=== PATIENT | male | born 1965 | race Caucasian/White ===

== ENCOUNTER → 2016-08-07 | Outpatient (CLI) | payer BC ==
[2016-08-07 12:45] LABS: Blood Urea Nitrogen 13 mg/dL (9-20); Non-African American GFR(MDRD) >60 (>60 ml/min/1.73 sqM)
--- NOTE | 2016-08-07 13:42 | CT ---
EXAMINATION TYPE: CT ChestAbdPelvis w con DATE OF EXAM: 08/07/2016 1:22 PM COMPARISON: CT chest June 22, 2016. PET/CT April 04, 2016 HISTORY: Lung CA after chemotherapy treatment progress study. CT DLP: 1398 mGycm. Automated Exposure Control for Dose Reduction was Utilized. CONTRAST: CT scan of the thorax, abdomen and pelvis is performed with oral and with IV Contrast, patient inject ed with 100 ml mL of Omnipaque 300. FINDINGS: LUNGS: There is background of mild to moderate emphysematous change redemonstrated. Masslike neoplasm left hilar level with hilar invasion remains present. This is difficult to accurately measure due to location, left hilar component measuring 2.6 x 2.0 cm is noted on image 32 felt that change from mos t recent CT image 37 but improved from initial PET/CT. There is increasing ill-defined infiltrate in the left lower lobe with mild bronchiectatic change could reflect posttreatment change, infectious pr ocess cannot be excluded. Additional area of ill-defined focal infiltrate medial inferiorly left uppe r lobe on axial image 29 is noted with similar differential. No new nodule or mass is seen. Previousl y visualized 5 mm right middle lobe nodule is not clearly identified on today's study. MEDIASTINUM: There are persistent prominent but subcentimeter thoracic lymph nodes felt stable. For reference right paratracheal lymph node measures 1.1 x 0.6 cm on image 22 and is felt stable. Subcen timeter paratracheal lymph node superior to this on axial image 17 is slightly more prominent but rem ain subcentimeter in size. No cardiomegaly or pericardial effusion is seen. OTHER: There are prominent but subcentimeter bilateral axillary lymph nodes incidentally noted. LIVER/GB: No significant abnormality is appreciated. PANCREAS: No significant abnormality is seen. SPLEEN: No significant abnormality is seen. ADRENALS: There is redemonstration of bilateral adrenal metastatic lesions, right adrenal mass measur es 3.4 x 1.8 cm on axial image 55. Left adrenal mass measures 2.3 x 2.1 cm on axial image 59. Lesions are diminished in size from prior exams. KIDNEYS: A few low dense lesions scattered throughout both kidneys consistent with simple cysts are n oted. BOWEL: There is mild to moderate wall thickening at level of sigmoid colon. Colitis at this level can not be entirely excluded. Clinical correlation advised. Finding also could be product of for distenti on. Oral contrast reaches level of rectum. No suspicious small or large bowel dilatation is present. GENITAL ORGANS: Prostate gland is heterogeneous in appearance and slightly enlarged in size, underlyi ng BPH is suspected. Clinical correlation advised. LYMPH NODES: No greater than 1cm abdominal or pelvic lymph nodes are appreciated. OSSEOUS STRUCTURES: Multilevel spurring and spine is redemonstrated. There is stable nonspecific scle rotic focus superior T11 vertebra. Favor benign etiology. OTHER: Small fat-containing left inguinal hernia. There is mild to moderate atherotic change of aorta and branch vessels. IMPRESSION: Left hilar neoplasm felt stable from most recent CT. Improved from initial PET/CT. Bilate ral adrenal metastatic lesions improved from both studies. No new metastatic lesions or adenopathy id entified.
== END | disposition home or self-care (01) ==
LOC: RADCTMAIN 12:02
PROVIDERS: ATTEND Internal Medicine Hematology & Oncology
DX: C34.90 Malignant neoplasm of unspecified part of unspecified bronchus or lung (principal)
CPT/HCPCS: 82565; 84520; 71260; 74177; 36415; Q9967

== ENCOUNTER → 2017-02-16 | Outpatient (CLI) | payer BC ==
[2017-02-16 13:23] LABS: Blood Urea Nitrogen 15 mg/dL (9-20); Non-African American GFR(MDRD) >60 (>60 ml/min/1.73 sqM)
--- NOTE | 2017-02-16 15:00 | CT ---
EXAMINATION TYPE: CT ChestAbdPelvis w con DATE OF EXAM: 02/16/2017 COMPARISON: 11/06/16 HISTORY: Patient complains of history of lung ca. Patient has no complaints at time of study. CT DLP: 729.1 mGycm CONTRAST: CT scan of the chest, abdomen and pelvis is performed with Oral Contrast and with IV Contrast, patien t injected with 100 mL of Omnipaque 300. CT Chest: LUNGS: Resolution of left-sided pleural effusion since prior examination. Left perihilar mass is not clearly visible. There is patchy opacity about the left hilum as well as bronchial wall thickening wi thout discernible mass. MEDIASTINUM: Thoracic aorta is of normal caliber. The heart is not enlarged. AP window lymph node m easuring 9 mm. Right paratracheal lymph nodes less than 1 cm. Tracheoesophageal lymph node measuring 9 mm. Resolution pericardial effusion. HILAR STRUCTURES: No evidence for mass. There is left hilar adenopathy measuring 1.3 cm in right christelle r adenopathy measuring 1.2 cm. OTHER: No significant abnormality. CONTRAST CT ABDOMEN AND PELVIS FINDINGS: LIVER/GB: No calcified gallstones. There is mild hepatic steatosis identified. No space occupying h epatic lesion. Biliary tree is of normal caliber. PANCREAS: No inflammation. No distinct mass. SPLEEN: No splenic enlargement. No lesion seen. ADRENALS: Bilateral adrenal masses persist. Right adrenal mass is larger in size and measures 5 x 3.3 cm versus 3.7 x 2.8 cm. Left adrenal mass appears smaller in size and measures 2.3 x 1.7 cm versus 3 .4 x 2.6 cm previously. KIDNEYS/BLADDER: No hydronephrosis. No nephrolithiasis. No disctinct renal mass. Urinary bladder wall thickening may be related to poor distention. BOWEL: Normal appendix. Normal bowel caliber. No inflammation. GENITAL ORGANS: No gross abnormality. LYMPH NODES: No greater than 1cm abdominal or pelvic lymph nodes are appreciated. AORTA: No significant abnormality. OSSEOUS STRUCTURES: No significant abnormality is seen. OTHER: No significant additional abnormality is seen. IMPRESSION: 1. Left hilar soft tissue persists and currently measures 1.3 cm versus 1.9 x 2.3 cm previously. This may reflect diminution in size of left hilar lesion or decreasing adenopathy. 2. Resolution of masslike consolidation left mid lung zone and resolution of left-sided pleural effus ion. As noted there is patchy opacity and bronchial wall thickening about the left hilar region. 3. Mediastinal and right hilar lymph nodes as discussed. 4. Bilateral adrenal masses suspicious for metastatic disease. 5. Hepatic steatosis.
== END | disposition home or self-care (01) ==
LOC: RADCTMAIN 12:38
PROVIDERS: ATTEND Internal Medicine Hematology & Oncology
DX: J18.1 Lobar pneumonia, unspecified organism (principal); J98.4 Other disorders of lung; J90 Pleural effusion, not elsewhere classified; C34.32 Malignant neoplasm of lower lobe, left bronchus or lung; E27.8 Other specified disorders of adrenal gland; K76.0 Fatty (change of) liver, not elsewhere classified; R59.0 Localized enlarged lymph nodes
CPT/HCPCS: 82565; 84520; 71260; 74177; 36415; Q9967

== ENCOUNTER → 2017-05-11 | Outpatient (CLI) | payer BC ==
[2017-05-11 08:41] LABS: Blood Urea Nitrogen 13 mg/dL (9-20); Non-African American GFR(MDRD) >60 (>60 ml/min/1.73 sqM)
--- NOTE | 2017-05-11 10:37 | CT ---
EXAMINATION TYPE: CT ChestAbdPelvis w con DATE OF EXAM: 05/11/2017 COMPARISON: February 16, 2017 HISTORY: Follow up to lung CA with mets CT DLP: 1655 mGycm CONTRAST: CT scan of the chest, abdomen and pelvis is performed with Oral Contrast and with IV Contrast, patien t injected with 100 mL of Omnipaque 300. CT Chest: LUNGS: There is persistent left infrahilar left lower lobe patchy density without discernible mass wh ich may reflect post radiation therapy change. Right upper lobe pulmonary nodule measures 5.6 mm vers us 5.6 mm previously. No additional nodules identified. No evidence for pulmonary mass. MEDIASTINUM: Thoracic aorta is of normal caliber. The heart is not enlarged. No evidence for media stinal mass or adenopathy greater than 1 cm. HILAR STRUCTURES: No change in left hilar soft tissue measuring approximately 1.3 cm. Right hilar franco nopathy measures 1 cm. OTHER: No significant abnormality. CONTRAST CT ABDOMEN AND PELVIS FINDINGS: LIVER/GB: No calcified gallstones. Mild hepatic steatosis. No space occupying hepatic lesion. Bilia ry tree is of normal caliber. PANCREAS: No inflammation. No distinct mass. SPLEEN: No splenic enlargement. No lesion seen. ADRENALS: Enlarging necrotic mass right adrenal gland currently measures 6.3 x 5.9 cm versus 5.0 x 3. 3 cm previously. There is mass effect upon the inferior vena cava and early invasion into the inferio r vena cava is difficult to exclude given loss of fat plane. There are several adjacent lymph nodes m easuring up to 7.5 mm in short axis. Nodularity left adrenal gland is stable. Invasion into the upper pole of the right kidney is also difficult to exclude. KIDNEYS/BLADDER: No hydronephrosis. No nephrolithiasis. I cannot exclude invasion of the large righ t adrenal mass into the upper pole of the right kidney. Simple cyst midpole right kidney. Left kidney is unremarkable. No hydronephrosis or nephrolithiasis at this time. BOWEL: Normal appendix. Normal bowel caliber. No inflammation. GENITAL ORGANS: No gross abnormality. LYMPH NODES: No greater than 1cm abdominal or pelvic lymph nodes are appreciated. AORTA: No significant abnormality. OSSEOUS STRUCTURES: No significant abnormality is seen. OTHER: No significant additional abnormality is seen. IMPRESSION: 1. Enlarging right adrenal mass felt to reflect metastatic disease. As noted there are adjacent enlar ging lymph nodes as well as loss of fat plane with regards to the upper pole of the right kidney and adjacent inferior vena cava. 2. Persistent and stable nodularity left adrenal gland. 3. Soft tissue within the left hilar region is stable. There is also stable left lower lobe strandy a nd patchy opacity which may reflect post radiation therapy changes. 4 stable right upper lobe pulmona ry nodule.
== END | disposition home or self-care (01) ==
LOC: RADCTMAIN 08:07
PROVIDERS: ATTEND Internal Medicine Hematology & Oncology
DX: R91.1 Solitary pulmonary nodule (principal); C79.71 Secondary malignant neoplasm of right adrenal gland; R59.0 Localized enlarged lymph nodes; C34.32 Malignant neoplasm of lower lobe, left bronchus or lung
CPT/HCPCS: 82565; 84520; 71260; 74177; 36415; Q9967

== ENCOUNTER → 2017-09-10 | Outpatient (CLI) | payer BC ==
[2017-09-10 12:13] LABS: Blood Urea Nitrogen 9 mg/dL (9-20)
--- NOTE | 2017-09-10 13:55 | CT ---
EXAMINATION TYPE: CT ChestAbdPelvis w con DATE OF EXAM: 09/10/2017 INDICATION: Lung cancer COMPARISON: 07/06/2017 CT DLP: 759.5 mGycm CONTRAST: Performed with Oral Contrast and with IV Contrast, patient injected with 100 mL of Omnipaque 300. TECHNIQUE: Axial images at 5 mm thick sections. Reconstructed images in the coronal plane. Delayed images through the kidneys. FINDINGS: CT CHEST: Portion of the thyroid visualized is normal. There is a right infrahilar consolidation with some air bronchograms. Infiltrate or mass could be con sidered. Findings may have worsened from prior. A small left pleural effusion is increased. There is a 1.6 cm right suprahilar lymph node. Some soft tissue densities in the left hilar region. N ote is made of coronary artery calcification. Minimal bilateral pleural effusions are present, increa sed on left. Minimal pericardial effusion is present. The ascending aorta diameter at the level of the main pulmonary artery is 3.4 cm. The main pulmonary artery diameter at the bifurcation is 2.[address] ABDOMEN: Liver: Normal Spleen: Normal Pancreas: Somewhat atrophic. Adrenal glands: Right adrenal gland is large measuring 3.8 cm transverse dimension. Gallbladder: Normal Kidneys: No masses are evident. No hydronephrosis is present. Small cortical renal cyst may be pres ent. These are not smooth margined into small to measure for confirmation simple cysts. Delayed imag es were obtained through the kidneys, which remain unremarkable. Aorta: Vascular calcification is within the aorta. Inferior vena cava: Normal. CT PELVIS: Loops of bowel within the abdomen and pelvis are normal. There are loops of bowel which are incom pletely distended or lack oral contrast limiting their evaluation. Appendix: Normal as visualized. Urinary bladder: Normal. Genitourinary structures: Prostate is mild prominence Osseous structures: No suspicious lytic or sclerotic lesions. IMPRESSIONS: 1. Increasing soft tissue densities extending to the left infrahilar region which are nonspecific. Po st radiation changes and pneumonia are within the differential. This appears increased from compariso n recurrent neoplasm should be considered. 2. Enlarged right adrenal gland which is diminished in size from comparison. 3. Small left pleural effusion some minimal right pleural effusion is present. 4. Enlarged right hilar lymph node.
== END | disposition home or self-care (01) ==
LOC: RADCTMAIN 11:31
PROVIDERS: ATTEND Internal Medicine Hematology & Oncology
DX: C34.32 Malignant neoplasm of lower lobe, left bronchus or lung (principal); J98.4 Other disorders of lung; J90 Pleural effusion, not elsewhere classified; E27.8 Other specified disorders of adrenal gland
CPT/HCPCS: 82565; 84520; 71260; 74177; 36415; Q9967

== ENCOUNTER → 2017-11-22 | Outpatient (CLI) | payer BC ==
[2017-11-22 16:38] LABS: Blood Urea Nitrogen 12 mg/dL (9-20)
--- NOTE | 2017-11-23 08:30 | CT ---
EXAMINATION TYPE: CT ChestAbdPelvis w con DATE OF EXAM: 11/22/2017 COMPARISON: CT chest abdomen and pelvis from September 10, 2017 and older studies. PET CT April 04, 2016. HISTORY: Lung cancer progress study last chemotherapy 7 -8 weeks ago per patient CT DLP: 1474 mGycm. Automated Exposure Control for Dose Reduction was Utilized. CONTRAST: CT scan of the thorax, abdomen and pelvis is performed with oral and with IV Contrast, patient inject ed with 100 mL of Isovue 300. FINDINGS: LUNGS: Background mild to moderate underlying emphysematous change is redemonstrated. There is interv al near-complete resolution of small to tiny right pleural effusion. There is interval resolution of small left pleural effusion. There is persistent left infrahilar consolidation with mild bronchiectat ic change on axial image 34 not significantly changed from prior study image 37 which is at site of o riginal neoplasm. Some irregular linear scarring and/or less likely atelectasis extends superior, lat eral, anterior, and posterior to this level. Slightly more thicker component posterior superior media l aspect axial image 30 is stable. No new suspicious nodules or masses are identified. No pneumothora x is seen bilaterally. Right lung is grossly clear. MEDIASTINUM: Abnormal soft tissue left hilar region axial image 30 encasing arterial branching vessel s which are slightly narrowed is unchanged from most recent study. There is stable right paratracheal lymph node measuring 1.2 x 0.8 cm axial image 22 this is nonspecific and slightly more prominent in size from original PET/CT. There is stable right hilar node measuring 1.5 x 1.1 cm axial image 27 thi s has been stable from original PET/CT where there was not for metabolic uptake. No pericardial effusion is seen. There is moderate to severe 3 vessel coronary artery calcification, note is made the proximal LAD near axial image 34 and coronal image 32 shows additional noncalcified plaque, I suspect a significant focal stenosis. I would consider further investigation with CTA shelbi nary study or direct catheter angiogram, this was likely in the radiation treatment port. OTHER: No additional significant abnormality is seen. LIVER/GB: Somewhat contracted gallbladder on current study is seen. PANCREAS: No significant abnormality is seen. SPLEEN: No significant abnormality is seen. ADRENALS: There is persistent heterogeneous right adrenal mass measuring 4.3 x 3.2 cm axial image 58 not significantly changed in size from most recent CT. Irregular hyperdense anterior aspect remains p resent slightly more prominent versus most recent CT. This is enlarged from original PET/CT. Slight nodular thickening to left adrenal gland is redemonstrated on axial image 58 not significantl y changed in size from recent CT perhaps slightly hyperdense. This is improved in size from original PET/CT. KIDNEYS: There are scattered simple appearing cysts throughout both kidneys redemonstrated. BOWEL: Oral contrast reaches level of the rectum. There is new mild to moderate wall thickening in th e sigmoid colon. Some diverticula are seen in the left and most prominent in the sigmoid colon. Mariela l contrast-filled appendix is seen from cecum. There is no suspicious small or large bowel dilatation . GENITAL ORGANS: Heterogeneous prostate gland remains mildly enlarged suggestive of BPH. LYMPH NODES: No greater than 1cm abdominal or pelvic lymph nodes are appreciated. OSSEOUS STRUCTURES: There is fairly moderate multilevel spurring in the spine. OTHER: There is mild to moderate calcified plaque of aorta extending into branch vessels IMPRESSION: 1. Overall stable findings left hilar region likely reflecting treated neoplasm. Stable bilateral adr enal metastatic lesions from most recent CT. Improved bilateral pleural effusions. No new suspicious masses or adenopathy noted. 2. Severe 3 vessel coronary artery calcification, good visualization of proximal LAD suspicious for s ignificant stenosis due to noncalcified plaque, advise follow-up coronary CTA or direct catheter carmelo ogram.
== END ==
LOC: RADCTMAIN 14:37
PROVIDERS: ATTEND Internal Medicine Hematology & Oncology
DX: Z03.89 Encounter for observation for other suspected diseases and conditions ruled out (principal); C79.71 Secondary malignant neoplasm of right adrenal gland; C79.72 Secondary malignant neoplasm of left adrenal gland; J90 Pleural effusion, not elsewhere classified; I25.10 Atherosclerotic heart disease of native coronary artery without angina pectoris
CPT/HCPCS: 82565; 84520; 71260; 74177; 36415; Q9967

== ENCOUNTER 2018-01-21 13:18 | Inpatient (IN) | payer BC, MEDICARE ==
[2018-01-21] MEDS ORDERED: SODIUM CHLORIDE 0.9% 1,000 ML IV ONE (14:47)
[2018-01-21] MEDS ORDERED: ASPIRIN 325 MG TAB PO STA (14:47)
[2018-01-21 15:13] LABS: ALT 15 U/L (21-72); AST 37 U/L (17-59); Albumin 4.7 g/dL (3.5-5.0); Alkaline Phosphatase 88 U/L (38-126); Anion Gap 17 mmol/L; Blood Urea Nitrogen 14 mg/dL (9-20); Calcium 9.8 mg/dL (8.4-10.2); Carbon Dioxide 18 mmol/L (22-30); Chloride 91 mmol/L (98-107); Glucose 69 mg/dL (74-99); Lipase 50 U/L (23-300); Sodium 126 mmol/L (137-145); Total Bilirubin 1.5 mg/dL (0.2-1.3); Total Protein 7.1 g/dL (6.3-8.2)
[2018-01-21 15:16] LABS: INR 1.2 (<1.2); Prothrombin Time 11.1 sec (9.0-12.0)
[2018-01-21 15:17] LABS: Partial Thromboplastin Time 32.3 sec (22.0-30.0)
[2018-01-21 15:24] LABS: Basophils % (A) 1 %; Eosinophils # (A) 0.4 k/uL (0-0.7); Eosinophils % (A) 8 %; HCT 39.1 % (39.0-53.0); Lymphocytes # (A) 0.7 k/uL (1.0-4.8); Lymphocytes % (A) 16 %; MCH 30.6 pg (25.0-35.0); MCHC 35.9 g/dL (31.0-37.0); MCV 85.4 fL (80.0-100.0); Mean Platelet Volume 6.8; Monocytes # (A) 0.4 k/uL (0-1.0); Monocytes % (A) 9 %; Neutrophils # (A) 2.9 k/uL (1.3-7.7); Neutrophils % (A) 64 %; Platelet Count 126 k/uL (150-450); RBC 4.58 m/uL (4.30-5.90); RDW 13.7 % (11.5-15.5); WBC 4.4 k/uL (3.8-10.6)
--- NOTE | 2018-01-21 15:35 | XR ---
EXAMINATION TYPE: XR chest 2V DATE OF EXAM: 01/21/2018 COMPARISON: CT chest abdomen and pelvis November 22, 2017 HISTORY: History of lung cancer with weakness, hyperthyroidism TECHNIQUE: Frontal and lateral views of the chest are obtained. FINDINGS: There is persistent left hilar scarring. There is no suspicious focal airspace opacity, pl eural effusion, or pneumothorax. Background mild underlying emphysematous changes redemonstrated. The cardiac silhouette size is within normal limits. The osseous structures are intact. IMPRESSION: Chronic changes without acute pulmonary process. No significant change from recent CT.
[2018-01-21 15:45] LABS: Potassium 5.4 mmol/L (3.5-5.1)
[2018-01-21 16:22] LABS: T4, Free (Free Thyroxine) 1.67 ng/dL (0.78-2.19)
--- NOTE | 2018-01-21 16:49 | ED ---
General Adult HPI - General Chief complaint: Recheck/Abnormal Lab/Rx Stated complaint: Abd normal labs-lung ca/sent by Dr Pino Time Seen by Provider: 01/21/18 14:05 Source: patient, family Mode of arrival: wheelchair Limitations: no limitations - History of Present Illness Initial comments: 52-year-old male with past medical history of small cell lung cancer and kidney cancer, diabetes, hypertension, and hypothyroidism on Synthroid presented for evaluation of confusion and hallucinations. His states that he is having symptoms for the last 5 days and a progressively been worsening. The confusion has just been generalized however at night he has been getting up out of bed stating that he sees lines in the yard and goes out to him. He is also gone outside to socialize with friends that are not present. Symptoms are worse at night and gradually improve around noon during the day. Patient also states that he's been having intermittent whole body spasms which she has never had before. No recent changes in medications, no recent illnesses, however a few days prior to symptom onset patient had discontinued a supplemental THC. Pt had routine lab work a week ago which showed elevated TSH, which they were informed of today and advised to come to the ED. - Related Data Home Medications Medication Instructions Recorded Confirmed Sertraline [Zoloft] 50 mg PO DAILY 04/07/16 01/21/18 Diazepam [Valium] 5 mg PO DAILY 04/08/16 01/21/18 Levothyroxine Sodium [Synthroid] 125 mcg PO DAILY 01/21/18 01/21/18 Allergies Allergy/AdvReac Type Severity Reaction Status Date / Time No Known Allergies Allergy Verified 01/21/18 14:06 Review of Systems ROS Statement: Those systems with pertinent positive or pertinent negative responses have been documented in the HPI. ROS Other: All systems not noted in ROS Statement are negative. Constitutional: Denies: fever, chills, weakness, weight change, night sweats Eyes: Denies: eye pain, vision change ENT: Denies: ear pain, throat pain Respiratory: Denies: cough, dyspnea Cardiovascular: Denies: chest pain, palpitations Endocrine: Reports: fatigue. Denies: polydipsia, polyuria Gastrointestinal: Denies: abdominal pain, nausea, vomiting Genitourinary: Denies: urgency, dysuria Musculoskeletal: Denies: back pain, arthralgia, myalgia Skin: Denies: rash, lesions Neurological: Reports: confusion, other (hallucinations). Denies: headache Psychiatric: Denies: anxiety, depression Hematological/Lymphatic: Denies: easy bleeding, easy bruising Past Medical History Past Medical History: Cancer, Diabetes Mellitus, Hypertension Additional Past Medical History / Comment(s): COUGH WITH BLOOD, lung cancer stage 4-non small cell carcinoma History of Any Multi-Drug Resistant Organisms: ESBL Date of last positivie culture/infection: 05/31/17 MDRO Source:: ESBL URINE Past Surgical History: Back Surgery Additional Past Surgical History / Comment(s): CERVICAL DISC "REMOVED" jul-2015 , HEMMORIODECTOMY, lung biopsy Past Anesthesia/Blood Transfusion Reactions: No Reported Reaction Past Psychological History: Depression Smoking Status: Current every day smoker Past Alcohol Use History: Occasional Past Drug Use History: Marijuana - Past Family History Mother Family Medical History: Myocardial Infarction ([place]) Father Family Medical History: CVA/TIA General Exam Limitations: no limitations General appearance: alert, in no apparent distress Head exam: Present: atraumatic, normocephalic Eye exam: Present: normal appearance, PERRL, EOMI. Absent: scleral icterus, conjunctival injection ENT exam: Present: normal exam, normal oropharynx Neck exam: Present: normal inspection, full ROM. Absent: tenderness, meningismus Respiratory exam: Present: normal lung sounds bilaterally. Absent: respiratory distress, wheezes, rales Cardiovascular Exam: Present: regular rate, normal rhythm GI/Abdominal exam: Present: soft. Absent: distended, tenderness, guarding, rebound, rigid Rectal exam: Present: deferred Extremities exam: Present: normal inspection, full ROM Back exam: Present: normal inspection, full ROM Neurological exam: Present: alert, oriented X3, other (intermittent, singular spasms that resolve and do not affect mental status) Psychiatric exam: Present: normal affect, normal mood Skin exam: Present: warm, dry, intact Course Vital Signs 01/21/18 01/21/18 13:32 16:37 Temperature 98.4 F Pulse Rate 95 97 Respiratory 20 18 Rate Blood Pressure 106/71 129/80 O2 Sat by Pulse 100 98 Oximetry EKG Findings - EKG Comments: EKG Findings:: Normal sinus rhythm with incomplete right bundle branch block and a ventricular rate of 77 Medical Decision Making - Medical Decision Making 52-year-old male with past medical history as noted above presented for evaluation of hallucinations, confusion, and elevated TSH per his oncologist Dr. Babb. On physical examination the patient does have intermittent spasms are singular and do not affect the mental status. CN 2-12 intact without focal neuro deficit. Normal gait and station. Remainder of exam benign. Labs revealed hyponatremia and hyperkalemia the patient will be given IV fluids and Kayexalate. Although TSH is elevated at 14.5 the free T4 is within normal limits. At this time concern for altered mental state and hallucination is not likely attributable to a thyroid etiology and concern for brain metastasis is considered. We'll obtain CT head and plan for admission. Discussed with Dr. Espinoza (hem/onc) who requested patient be admitted to medicine. Discussed with Dr. Page who accepted the admission with request for consult with Dr. Babb. Admission order placed and bed request submitted. Will continue to follow CT head through admission. - Lab Data Result diagrams: 01/21/18 14:07 01/21/18 14:07 Lab Results 01/21/18 01/21/18 01/21/18 Range/Units 14:07 14:07 14:07 WBC 4.4 (3.8-10.6) k/uL RBC 4.58 (4.30-5.90) m/uL Hgb 14.0 (13.0-17.5) gm/dL Hct 39.1 (39.0-53.0) % MCV 85.4 (80.0-100.0) fL MCH 30.6 (25.0-35.0) pg MCHC 35.9 (31.0-37.0) g/dL RDW 13.7 (11.5-15.5) % Plt Count 126 L (150-450) k/uL Neutrophils % 64 % Lymphocytes % 16 % Monocytes % 9 % Eosinophils % 8 % Basophils % 1 % Neutrophils # 2.9 (1.3-7.7) k/uL Lymphocytes # 0.7 L (1.0-4.8) k/uL Monocytes # 0.4 (0-1.0) k/uL Eosinophils # 0.4 (0-0.7) k/uL Basophils # 0.0 (0-0.2) k/uL PT (9.0-12.0) sec INR (<1.2) APTT (22.0-30.0) sec Sodium 126 L (137-145) mmol/L Potassium 5.4 H (3.5-5.1) mmol/L Chloride 91 L (98-107) mmol/L Carbon Dioxide 18 L (22-30) mmol/L Anion Gap 17 mmol/L BUN 14 (9-20) mg/dL Creatinine 0.60 L (0.66-1.25) mg/dL Est GFR (CKD-EPI)AfAm >90 (>60 ml/min/1.73 sqM) Est GFR (CKD-EPI)NonAf >90 (>60 ml/min/1.73 sqM) Glucose 69 L (74-99) mg/dL Plasma Lactic Acid Balbir 1.1 (0.7-2.0) mmol/L Calcium 9.8 (8.4-10.2) mg/dL Total Bilirubin 1.5 H (0.2-1.3) mg/dL AST 37 (17-59) U/L ALT 15 L (21-72) U/L Alkaline Phosphatase 88 (38-126) U/L Troponin I (0.000-0.034) ng/mL NT-Pro-B Natriuret Pep pg/mL Total Protein 7.1 (6.3-8.2) g/dL Albumin 4.7 (3.5-5.0) g/dL Lipase 50 (23-300) U/L TSH 14.500 H (0.465-4.680) mIU/L Free T4 1.67 (0.78-2.19) ng/dL Urine Color Urine Appearance (Clear) Urine pH (5.0-8.0) Ur Specific [place] (1.001-1.035) Urine Protein (Negative) Urine Glucose (UA) (Negative) Urine Ketones (Negative) Urine Blood (Negative) Urine Nitrite (Negative) Urine Bilirubin (Negative) Urine Urobilinogen (<2.0) mg/dL Ur Leukocyte Esterase (Negative) 01/21/18 01/21/18 01/21/18 Range/Units 14:07 14:07 14:07 WBC (3.8-10.6) k/uL RBC (4.30-5.90) m/uL Hgb (13.0-17.5) gm/dL Hct (39.0-53.0) % MCV (80.0-100.0) fL MCH (25.0-35.0) pg MCHC (31.0-37.0) g/dL RDW (11.5-15.5) % Plt Count (150-450) k/uL Neutrophils % % Lymphocytes % % Monocytes % % Eosinophils % % Basophils % % Neutrophils # (1.3-7.7) k/uL Lymphocytes # (1.0-4.8) k/uL Monocytes # (0-1.0) k/uL Eosinophils # (0-0.7) k/uL Basophils # (0-0.2) k/uL PT 11.1 (9.0-12.0) sec INR 1.2 H (<1.2) APTT 32.3 H (22.0-30.0) sec Sodium (137-145) mmol/L Potassium (3.5-5.1) mmol/L Chloride (98-107) mmol/L Carbon Dioxide (22-30) mmol/L Anion Gap mmol/L BUN (9-20) mg/dL Creatinine (0.66-1.25) mg/dL Est GFR (CKD-EPI)AfAm (>60 ml/min/1.73 sqM) Est GFR (CKD-EPI)NonAf (>60 ml/min/1.73 sqM) Glucose (74-99) mg/dL Plasma Lactic Acid Balbir (0.7-2.0) mmol/L Calcium (8.4-10.2) mg/dL Total Bilirubin (0.2-1.3) mg/dL AST (17-59) U/L ALT (21-72) U/L Alkaline Phosphatase (38-126) U/L Troponin I <0.012 (0.000-0.034) ng/mL NT-Pro-B Natriuret Pep 196 pg/mL Total Protein (6.3-8.2) g/dL Albumin (3.5-5.0) g/dL Lipase (23-300) U/L TSH (0.465-4.680) mIU/L Free T4 (0.78-2.19) ng/dL Urine Color Urine Appearance (Clear) Urine pH (5.0-8.0) Ur Specific [place] (1.001-1.035) Urine Protein (Negative) Urine Glucose (UA) (Negative) Urine Ketones (Negative) Urine Blood (Negative) Urine Nitrite (Negative) Urine Bilirubin (Negative) Urine Urobilinogen (<2.0) mg/dL Ur Leukocyte Esterase (Negative) 01/21/18 Range/Units 16:44 WBC (3.8-10.6) k/uL RBC (4.30-5.90) m/uL Hgb (13.0-17.5) gm/dL Hct (39.0-53.0) % MCV (80.0-100.0) fL MCH (25.0-35.0) pg MCHC (31.0-37.0) g/dL RDW (11.5-15.5) % Plt Count (150-450) k/uL Neutrophils % % Lymphocytes % % Monocytes % % Eosinophils % % Basophils % % Neutrophils # (1.3-7.7) k/uL Lymphocytes # (1.0-4.8) k/uL Monocytes # (0-1.0) k/uL Eosinophils # (0-0.7) k/uL Basophils # (0-0.2) k/uL PT (9.0-12.0) sec INR (<1.2) APTT (22.0-30.0) sec Sodium (137-145) mmol/L Potassium (3.5-5.1) mmol/L Chloride (98-107) mmol/L Carbon Dioxide (22-30) mmol/L Anion Gap mmol/L BUN (9-20) mg/dL Creatinine (0.66-1.25) mg/dL Est GFR (CKD-EPI)AfAm (>60 ml/min/1.73 sqM) Est GFR (CKD-EPI)NonAf (>60 ml/min/1.73 sqM) Glucose (74-99) mg/dL Plasma Lactic Acid Balbir (0.7-2.0) mmol/L Calcium (8.4-10.2) mg/dL Total Bilirubin (0.2-1.3) mg/dL AST (17-59) U/L ALT (21-72) U/L Alkaline Phosphatase (38-126) U/L Troponin I (0.000-0.034) ng/mL NT-Pro-B Natriuret Pep pg/mL Total Protein (6.3-8.2) g/dL Albumin (3.5-5.0) g/dL Lipase (23-300) U/L TSH (0.465-4.680) mIU/L Free T4 (0.78-2.19) ng/dL Urine Color Yellow Urine Appearance Clear (Clear) Urine pH 5.0 (5.0-8.0) Ur Specific [place] 1.012 (1.001-1.035) Urine Protein Trace H (Negative) Urine Glucose (UA) Negative (Negative) Urine Ketones 1+ H (Negative) Urine Blood Negative (Negative) Urine Nitrite Negative (Negative) Urine Bilirubin Negative (Negative) Urine Urobilinogen <2.0 (<2.0) mg/dL Ur Leukocyte Esterase Negative (Negative) Disposition Clinical Impression: Hyperkalemia, Hyponatremia, Altered mental status, unspecified, Hallucination Disposition: ADMITTED IP TO THIS [facility] Referrals: Ja Babb MD [Primary Care Provider] - 1-2 days Decision to Admit Reason: Admit from EC Decision Date: 01/21/18 Decision Time: 17:38
[2018-01-21 16:51] LABS: Appearance,Urine Clear (Clear); Bilirubin,Urine Negative (Negative); Blood,Urine Negative (Negative); Color,Urine Yellow; Glucose,Urine (UA) Negative (Negative); Ketones,Urine 1+ (Negative); Leukocyte Esterase,Urine Negative (Negative); Nitrite,Urine Negative (Negative); Protein,Urine Trace (Negative); Specific Gravity,Urine 1.012 (1.001-1.035); Urobilinogen,Urine <2.0 mg/dL (<2.0)
[2018-01-21] MEDS ORDERED: ONDANSETRON 4 MG/2 ML VIAL IVP PRN (17:27)
[2018-01-21] MEDS ORDERED: NALOXONE 0.4 MG/ML 1 ML VIAL IV PRN (17:27)
[2018-01-21] MEDS ORDERED: SODIUM POLYSTYRENE SULFONATE 15 GM/60 ML BOTTLE PO STA (17:37)
--- NOTE | 2018-01-21 17:51 | CT ---
EXAMINATION TYPE: CT brain wo con DATE OF EXAM: 01/21/2018 COMPARISON: NONE HISTORY: Weakness, lung CA CT DLP: 1073 mGycm Automated exposure control for dose reduction was used. FINDINGS: Ventricles and sulci appear normal. There is no mass effect nor midline shift. There is no sign of in tracranial hemorrhage. The calvarium is intact. IMPRESSION: NEGATIVE CT SCAN OF THE BRAIN.
[2018-01-21] MEDS ORDERED: RX INFO: IV CONTRAST WAS GIVEN 1 EACH MISC MISCELLANE PRN (17:58)
--- NOTE | 2018-01-21 18:35 | CT ---
EXAMINATION TYPE: CT brain w con DATE OF EXAM: 01/21/2018 COMPARISON: Today HISTORY: R/O mets hallucinations CT DLP: 1051.8 mGycm Automated exposure control for dose reduction was used. CONTRAST: CT scan of the head is performed with IV Contrast, patient injected with 100 mL of Isovue 300. FINDINGS: Ventricles of normal size. There is no mass effect nor midline shift. There is no sign of intracrania l hemorrhage. There is no pathologic enhancement. The calvarium is intact. IMPRESSION: Negative CT scan of the brain. No evidence of metastatic disease.
[2018-01-21] MEDS: SODIUM CHLORIDE 0.9% 1,000 ML IV SCH (22:53)
[2018-01-22] MEDS ORDERED: LEVOTHYROXINE 125 MCG TAB PO SCH (06:30)
[2018-01-22 07:34] LABS: Basophils % (A) 1 %; Eosinophils # (A) 0.4 k/uL (0-0.7); Eosinophils % (A) 10 %; HCT 35.3 % (39.0-53.0); HGB 12.5 gm/dL (13.0-17.5); Lymphocytes # (A) 0.6 k/uL (1.0-4.8); Lymphocytes % (A) 15 %; MCH 30.4 pg (25.0-35.0); MCHC 35.5 g/dL (31.0-37.0); MCV 85.6 fL (80.0-100.0); Mean Platelet Volume 6.4; Monocytes # (A) 0.2 k/uL (0-1.0); Monocytes % (A) 6 %; Neutrophils # (A) 2.4 k/uL (1.3-7.7); Neutrophils % (A) 66 %; Platelet Count 132 k/uL (150-450); RBC 4.12 m/uL (4.30-5.90); RDW 13.7 % (11.5-15.5); WBC 3.7 k/uL (3.8-10.6)
[2018-01-22 07:36] LABS: Anion Gap 12 mmol/L; Blood Urea Nitrogen 10 mg/dL (9-20); Calcium 9.1 mg/dL (8.4-10.2); Carbon Dioxide 22 mmol/L (22-30); Chloride 96 mmol/L (98-107); Glucose 75 mg/dL (74-99); Magnesium 1.4 mg/dL (1.6-2.3); Phosphorus 4.2 mg/dL (2.5-4.5); Potassium 4.1 mmol/L (3.5-5.1); Sodium 130 mmol/L (137-145)
[2018-01-22] MEDS: SODIUM CHLORIDE 0.9% 1,000 ML IV SCH (08:10)
[2018-01-22] MEDS: DIAZEPAM 5 MG TAB PO SCH (08:10)
[2018-01-22] MEDS ORDERED: SERTRALINE 50 MG TAB PO SCH (09:00)
--- NOTE | 2018-01-22 11:36 | P.HPIM ---
History of Present Illness H&P Date: 01/22/18 Chief Complaint: Confusion This is a pleasant 52-year-old white male patient of my partner, Dr. Newton. He had not been in the office since his diagnosis with lung carcinoma in March 2016. He is been primarily following up with hematology oncology. His reports that approximately 5 days ago, the patient began being confused. This should been worse first thing in the morning and later in the evening. It has worsened with time. Labs done by he mock showed a TSH elevated at approximately 15. With the increased confusion, he was brought to emergency room. He was found to be hyponatremic, hyperkalemic, and apparently euvolemic. His does report that he has not been eating and drinking is much lately. He takes Zoloft for depression, is been taking half a tablet of 50 mg for several years. He is on Synthroid as well 125 g daily. He also takes diazepam. In the emergency room CT brain with contrast failed to show any metastases to lungs. The ER physician, he did have metastases to the kidneys. He is resting comfortably in the bed on the oncology unit. He is slightly confused. His is at bedside and we discussed his care. Review of Systems ROS unobtainable: due to mental status (reviewed with , SEE HPI) Past Medical History Past Medical History: Cancer, Diabetes Mellitus, Hypertension, Thyroid Disorder Additional Past Medical History / Comment(s): lung cancer stage 4-non small cell carcinoma and kidney cancer,pt stated has had chemo and radiaiton "occ heartburn", pt sated no longer on meds for dm or bp since losing wt, past uti(e coli) History of Any Multi-Drug Resistant Organisms: ESBL Date of last positivie culture/infection: 05/31/17 MDRO Source:: ESBL URINE Past Surgical History: Back Surgery Additional Past Surgical History / Comment(s): CERVICAL DISC "REMOVED" jul-2015 , HEMMORIODECTOMY, lung biopsy Past Anesthesia/Blood Transfusion Reactions: No Reported Reaction Smoking Status: Current every day smoker - Past Family History Mother Family Medical History: Myocardial Infarction ([place]) Father Family Medical History: CVA/TIA Medications and Allergies Home Medications Medication Instructions Recorded Confirmed Type Sertraline [Zoloft] 50 mg PO DAILY 04/07/16 01/21/18 History Diazepam [Valium] 5 mg PO DAILY 04/08/16 01/21/18 History Levothyroxine Sodium [Synthroid] 125 mcg PO DAILY 01/21/18 01/21/18 History Allergies Allergy/AdvReac Type Severity Reaction Status Date / Time No Known Allergies Allergy Verified 01/21/18 14:06 Physical Exam Vitals: Vital Signs Temp Pulse Pulse Resp BP BP Pulse Ox 01/22/18 06:00 97.0 F L 99 18 97/71 98 01/21/18 22:43 96.4 F L 80 16 110/65 98 01/21/18 18:25 97.9 F 83 18 119/73 100 01/21/18 16:37 97 18 129/80 98 01/21/18 13:32 98.4 F 95 20 106/71 100 Intake and Output 01/21/18 01/22/18 01/22/18 22:59 06:59 14:59 Intake Total 590 600 Balance 590 600 Intake: Intake, IV Titration 600 Amount Sodium Chloride 0.9% 1, 600 000 ml @ 75 mls/hr IV . [id number] [facility] Rx#:[id number] Oral 590 Other: Voiding Method Toilet Toilet # Voids 2 2 GENERAL: Awake, thin, confused and in no acute distress. HEAD: Atraumatic, normocephalic. EYES: Pupils equal round and reactive to light, extraocular movements intact, sclera anicteric, conjunctiva are normal. ENT:nares patent, oropharynx clear without exudates. Moist mucous membranes. NECK: Normal range of motion, supple without lymphadenopathy or JVD, no thyromegaly LUNGS: Breath sounds coarse to auscultation bilaterally and equal. No wheezes rales or rhonchi. HEART: Regular rate and rhythm without murmurs, rubs or gallops.S1S2 Normal ABDOMEN: Soft, nontender, normoactive bowel sounds. No guarding, no rebound. No masses appreciated. EXTREMITIES: Normal range of motion, no pitting or edema. No clubbing or cyanosis. NEUROLOGICAL: Cranial nerves II through XII grossly intact. Normal speech, normal gait. PSYCH: Normal mood, normal affect. SKIN: Warm, Dry, normal turgor, no rashes or lesions noted. Results CBC & Chem 7: 01/22/18 06:33 01/22/18 06:33 Labs: Abnormal Lab Results - Last 24 Hours (Table) 01/21/18 01/21/18 01/21/18 Range/Units 14:07 14:07 14:07 WBC (3.8-10.6) k/uL RBC (4.30-5.90) m/uL Hgb (13.0-17.5) gm/dL Hct (39.0-53.0) % Plt Count 126 L (150-450) k/uL Lymphocytes # 0.7 L (1.0-4.8) k/uL INR 1.2 H (<1.2) APTT 32.3 H (22.0-30.0) sec Sodium 126 L (137-145) mmol/L Potassium 5.4 H (3.5-5.1) mmol/L Chloride 91 L (98-107) mmol/L Carbon Dioxide 18 L (22-30) mmol/L Creatinine 0.60 L (0.66-1.25) mg/dL Glucose 69 L (74-99) mg/dL Osmolality (280-301) mosm/kg Magnesium (1.6-2.3) mg/dL Total Bilirubin 1.5 H (0.2-1.3) mg/dL ALT 15 L (21-72) U/L TSH 14.500 H (0.465-4.680) mIU/L Urine Protein (Negative) Urine Ketones (Negative) 01/21/18 01/21/18 01/22/18 Range/Units 14:07 16:44 06:33 WBC 3.7 L (3.8-10.6) k/uL RBC 4.12 L (4.30-5.90) m/uL Hgb 12.5 L (13.0-17.5) gm/dL Hct 35.3 L (39.0-53.0) % Plt Count 132 L (150-450) k/uL Lymphocytes # 0.6 L (1.0-4.8) k/uL INR (<1.2) APTT (22.0-30.0) sec Sodium (137-145) mmol/L Potassium (3.5-5.1) mmol/L Chloride (98-107) mmol/L Carbon Dioxide (22-30) mmol/L Creatinine (0.66-1.25) mg/dL Glucose (74-99) mg/dL Osmolality 254 L (280-301) mosm/kg Magnesium (1.6-2.3) mg/dL Total Bilirubin (0.2-1.3) mg/dL ALT (21-72) U/L TSH (0.465-4.680) mIU/L Urine Protein Trace H (Negative) Urine Ketones 1+ H (Negative) 01/22/18 Range/Units 06:33 WBC (3.8-10.6) k/uL RBC (4.30-5.90) m/uL Hgb (13.0-17.5) gm/dL Hct (39.0-53.0) % Plt Count (150-450) k/uL Lymphocytes # (1.0-4.8) k/uL INR (<1.2) APTT (22.0-30.0) sec Sodium 130 L (137-145) mmol/L Potassium (3.5-5.1) mmol/L Chloride 96 L (98-107) mmol/L Carbon Dioxide (22-30) mmol/L Creatinine 0.58 L (0.66-1.25) mg/dL Glucose (74-99) mg/dL Osmolality (280-301) mosm/kg Magnesium 1.4 L (1.6-2.3) mg/dL Total Bilirubin (0.2-1.3) mg/dL ALT (21-72) U/L TSH (0.465-4.680) mIU/L Urine Protein (Negative) Urine Ketones (Negative) CT Scan - head: report reviewed Thrombosis Risk Factor Assmnt - DVT/VTE Prophylaxis DVT/VTE Prophylaxis: Pharmacologic Prophylaxis ordered - Choose All That Apply Any of the Below Risk Factors Present?: Yes Each Factor Represents 1 point: Age 41-60 years Other Risk Factors: Yes Each Risk Factor Represents 2 Points: Malignancy Other congenital or acquired thrombophilia - If yes, enter type in comment: No Thrombosis Risk Factor Assessment Total Risk Factor Score: 3 Thrombosis Risk Factor Assessment Level: Moderate Risk Assessment and Plan (1) Small cell lung cancer Current Visit: Yes Status: Acute Code(s): C34.90 - MALIGNANT NEOPLASM OF UNSP PART OF UNSP BRONCHUS OR LUNG SNOMED Code(s): 314109896 (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 Current Visit: Yes Status: Acute Code(s): C79.70 - SECONDARY MALIGNANT NEOPLASM OF UNSPECIFIED ADRENAL GLAND SNOMED Code(s): 94676643 (3) Hallucination Current Visit: Yes Status: Acute Code(s): R44.3 - HALLUCINATIONS, UNSPECIFIED SNOMED Code(s): 5490243 (4) Hyperkalemia Current Visit: Yes Status: Acute Code(s): E87.5 - HYPERKALEMIA SNOMED Code (s): 44159509 (5) Hyponatremia Current Visit: Yes Status: Acute Code(s): E87.1 - HYPO-OSMOLALITY AND HYPONATREMIA SNOMED Code(s): 55908137 (6) Hypothyroidism Current Visit: Yes Status: Acute Code(s): E03.9 - HYPOTHYROIDISM, UNSPECIFIED SNOMED Code(s): 14812971 Plan: A sense current findings of serum, and urine osmolality along with spot urine sodium, 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 I will consult nephrology due to his metastatic adrenal lesions. With the consultants from hematology oncology. He' ll continue gently rehydrating him with normal saline 75 mL an hour. We will replace his magnesium which is 1.4. We will increase his Synthroid from 125 and 137 g daily as this is low. While his Zoloft may be causing this, discontinue this at this time. I will reevaluate him in the next 24 hours.
--- NOTE | 2018-01-22 12:34 | P.NPCON ---
History of Present Illness - Reason for Consult hyponatremia - History of Present Illness Reason for consultation: Hyponatremia History of present illness: Patient is a 52-year-old male seen in renal consultation for hyponatremia. Patient has history of small cell lung Cancer that was diagnosed in March 2016. He is noted to have metastasis to the adrenal glands. He is undergoing chemotherapy and radiation and last treatment was in September 2017. Patient states his last few days he's been feeling weak and according to the he was also confused and hallucinating. His oral intake has been quite poor the last few days. He's been drinking fluids to keep himself hydrated. His sodium level was 126 on admission and is 130 this morning. He's currently maintained on normal saline at 75 mL an hour. He also received a 1 L bolus of normal saline on admission. He is currently resting in bed. Denies any diarrhea. Patient states he was having dry heaves at home. Creatinine is 0.58 today. Blood pressure was 97/71 this morning. Admits to good urine output. No hematuria or dysuria. I don't see any diuretics and his home medications. He does take Zoloft. He was also noted to have elevated TSH at 14.5. Dose of Synthroid has been increased. Vital signs are stable. General: The patient appeared well nourished and normally developed. HEENT: Head exam is unremarkable. Neck is without jugular venous distension. LUNGS: Lungs are clear to auscultation and percussion. Breath sounds decreased. HEART: Rate and Rhythm are regular. First and second heart sounds normal. No murmurs, rubs or gallops. ABDOMEN: Abdominal exam reveals normal bowel sounds. Non-tender and non- distended. No evidence of peritonitis. EXTREMITITES: No clubbing, cyanosis, or edema. Past Medical History Past Medical History: Cancer, Diabetes Mellitus, Hypertension, Thyroid Disorder Additional Past Medical History / Comment(s): lung cancer stage 4-non small cell carcinoma and kidney cancer,pt stated has had chemo and radiaiton "occ heartburn", pt sated no longer on meds for dm or bp since losing wt, past uti(e coli) History of Any Multi-Drug Resistant Organisms: ESBL Date of last positivie culture/infection: 05/31/17 MDRO Source:: ESBL URINE Past Surgical History: Back Surgery Additional Past Surgical History / Comment(s): CERVICAL DISC "REMOVED" jul-2015 , HEMMORIODECTOMY, lung biopsy Past Anesthesia/Blood Transfusion Reactions: No Reported Reaction Smoking Status: Current every day smoker - Past Family History Mother Family Medical History: Myocardial Infarction ([place]) Father Family Medical History: CVA/TIA Medications and Allergies Home Medications Medication Instructions Recorded Confirmed Type Sertraline [Zoloft] 50 mg PO DAILY 04/07/16 01/21/18 History Diazepam [Valium] 5 mg PO DAILY 04/08/16 01/21/18 History Levothyroxine Sodium [Synthroid] 125 mcg PO DAILY 01/21/18 01/21/18 History Allergies Allergy/AdvReac Type Severity Reaction Status Date / Time No Known Allergies Allergy Verified 01/21/18 14:06 Physical Exam Vitals: Vital Signs Temp Pulse Pulse Resp BP BP Pulse Ox 01/22/18 06:00 97.0 F L 99 18 97/71 98 01/21/18 22:43 96.4 F L 80 16 110/65 98 01/21/18 18:25 97.9 F 83 18 119/73 100 01/21/18 16:37 97 18 129/80 98 01/21/18 13:32 98.4 F 95 20 106/71 100 Intake and Output 01/21/18 01/22/18 01/22/18 22:59 06:59 14:59 Intake Total 590 600 Balance 590 600 Intake: Intake, IV Titration 600 Amount Sodium Chloride 0.9% 1, 600 000 ml @ 75 mls/hr IV . [id number] [facility] Rx#:[id number] Oral 590 Other: Voiding Method Toilet Toilet # Voids 2 2 Results - Lab Results Most recent lab results Calcium 9.1 mg/dL (8.4-10.2) 01/22/18 06:33 Phosphorus 4.2 mg/dL (2.5-4.5) 01/22/18 06:33 Magnesium 1.4 mg/dL (1.6-2.3) L 01/22/18 06:33 01/22/18 06:33 01/22/18 06:33 Assessment and Plan Plan: Assessment: 1. Hypovolemic hyponatremia improving with IV hydration. Sodium level up to 130 this morning. Also component of SIADH from malignancy and hypothyroidism which will also contribute to hyponatremia. 2. Hypomagnesemia from poor oral intake. 3. Small cell lung cancer with metastasis. 4. Hypothyroidism maintained on Synthroid. Dose increased. Plan: Encouraged oral solute intake. Add ensure 3 times daily. 1500 mL fluid restriction. Replace magnesium. 3 g IV today. Continue normal saline at 75 mL an hour for now. Check a.m. cortisol level and uric acid. Repeat electrolytes in the morning. Thank you for the consultation. I will continue to follow the patient with you during his hospital stay.
[2018-01-22] MEDS: MAGNESIUM SULFATE-D5W PMX 1 GM in DEXTROSE/WATER 1 100ML.BAG IVPB SCH ×3 (13:10→17:06)
[2018-01-22 14:53] VITALS: BMI 22.8
[2018-01-22] MEDS: NICOTINE 21MG/24HR PATCH TRANSDERM SCH (17:06)
--- NOTE | 2018-01-22 17:33 | CONS ---
CONSULTATION DATE OF SERVICE: January 22, 2018. REASON FOR CONSULTATION: Lung carcinoma. CHIEF COMPLAINT: Hallucination and agitation. Devin is a very pleasant 52-year-old gentleman who initially presented with progressive dyspnea and hemoptysis. He had a CT scan of the chest with in March of 2016, which revealed a 3.8 left infrahilar mass like consolidation and small pleural effusions and also suspicious bilateral adrenal gland masses measuring 3 cm on the left and 3.2 cm on the on the right. On April 04, 2016, he had a PET scan which revealed suspicious uptake and 5.2 cm left lower lobe lung mass with opacifications and loss of volume in the left lower lobe and small pleural effusion, very suspicious uptake and bilateral adrenal glands. On 04/08/2016, he underwent a diagnostic bronchoscopy, brushings, cytology and transbronchial biopsy of the left main stem bronchus were positive for squamous cell carcinoma of the lung. Shortly after that, he developed complete opacification of the left hemithorax for which he required palliative radiation therapy to the lung, which was completed on 05/12/2016. Subsequently started systemic chemo treatment with a combination of cisplatin, Gemzar and Portrazza. He had a repeat CT scan in on 06/22/2016 which revealed improvement in his disease and he ended up of completing 4 cycles of it on 08/06/2016. He did have a repeat CT scan after that which revealed improvement in his disease and he went on maintenance Gemzar in September 2016. He continued until October 2016 when he had further disease progression and Gemzar was discontinued. Subsequently, he was started on immunotherapy with Opdivo on 11/19/2016 and he received it until May 2017 when he had further disease progression with a very large adrenal mass for which he underwent IMRT radiation therapy completed June 02, 2017. He did achieve stable disease after that on June 02, 2017. Subsequently in July 2017, he had further disease progression and he was started on single agent Abraxane. He had total on a weekly schedule. He had a total of 2 weekly cycles and it was held by the end of August of 2017 due to progressive fatigue. He did achieve stable disease on that and he did have a repeat CT scan on 11/22/2017, which revealed stable disease. However, at that time the patient subsequently opted to have alternative therapy and he has been using a lot of Naveed oil and cannabis oil and other alternative medication. He was last seen in the office on 01/10/2018 and at that time, he decided to try alternative treatment for 2 or 3 months and then he will make a decision whether to pursue further medical therapy or not. However, over the last few days, his called our office. He has been having issue with hallucination and becoming confused and combative. She was asked to him to the emergency department. In the emergency department, he was found to be somewhat hyponatremic, however, this is a chronic problem for him and then he had a CT scan of the brain with and without IV contrast which were negative. Then, the patient was admitted to the hospital for further evaluation. He remained somewhat confused and somewhat agitated. He had tremors at home according to his , but the stating he remember things very well. He more like having some agitation and hallucination. In fact, one night he woke up and thought there were lions in his backyard. He has been eating okay and his breathing is about the same. He has his chronic fatigue, anxiety and depression. No fever or chills. No worsening cough. No dysphagia. No nausea or vomiting. No melena, hematochezia, hematuria, hemoptysis or hematemesis. PAST MEDICAL HISTORY: In addition to what is stated above in regard to his squamous cell lung carcinoma, he has the history of hypertension, diabetes, hypothyroidism, but this was related to immune therapy. He has a history of depression and anxiety. He has a history of ESBL in the urine, has back surgery in the past. PAST FAMILY HISTORY: His uncle had cancer unknown type in his early 60s. Otherwise negative for hematologic disorder. ALLERGIES: There is no known drug allergy. HOME MEDICATIONS: Include Synthroid 125 mcg daily, Zoloft 100 mg daily. He has Valium to use as needed at bedtime, but he has not used that for several days according to the . REVIEW OF SYSTEMS: As much as could be obtained from the patient. However, mostly was obtained from his who was present at bedside. PHYSICAL EXAMINATION: He is alert. He does answer questions appropriately, but he appears somewhat agitated. He repeats questions and he has some confusion. He does not appear to be in acute distress. His vital signs are temperature 97.5 afebrile, pulse 71 regular, respirations 16, blood pressure 95/62. HEENT: Normocephalic, atraumatic. No obvious icterus. NECK: Supple. No jugular venous distention. Chest expansion bilaterally. LUNGS: Clear to auscultation and percussion. Heart is regular rhythm. ABDOMEN: Soft. No obvious organomegaly or masses. Bowel sounds present. EXTREMITIES: No edema skin no significant bruises, ecchymosis, petechiae. Lymphatic system: No peripherally enlarged cervical, supraclavicular nodes. MUSCULOSKELETAL: Moving all extremities appropriately. No percussion tenderness detected over spine, sternum. LABORATORY DATA: WBC are 3.7, hemoglobin 12.5, hematocrit 35.8, platelets are 132. Sodium 130, upon admission his sodium was 127, potassium 4.1, chloride 96, CO2 is 22, BUN is 10, creatinine 0.8. AST 37, ALT is 15, alkaline phosphatase is 88. IMPRESSION: 1. Stage IV squamous cell carcinoma of the lung was diagnostic and therapeutic circumstances stated above. 2. Hallucination and agitation. It could be related to his alternative therapy the patient has been using. He has been on cannabis oil and other alternatives. The patient stated when he first started he felt different. At this point in time, his recent CT scan of the brain did not reveal any evidence of metastatic disease. 3. Hyponatremia hypovolemic, but this is probably related to underlying lung disease and malignancy. 4. Hypothyroidism. This is related to his previous immunotherapy. RECOMMENDATION: 1. Continue to monitor patient closely. He does not have any evidence of sepsis to explain his mental status and also he does not appear to be in pain as well as a cause of his change in mental status. It is possibly related to taking his alternative therapies and with which I do not know exactly what it is and one part of it was cannabis oil and Burger oil as well. If his mental status did not improve, then we should pursue a brain MRI. 2. Monitor his electrolytes. His sodium appears to be improving. 3. While inpatient, we will repeat a CT scan of the chest and abdomen to re-evaluate his disease status. The above was discussed with the patient and his at bedside and answered all their questions to their satisfaction. Thank you much for asking me to participate in this nice gentleman's care. MMODL / IJN: [id number] /
[2018-01-22 18:23] LABS: Hemoglobin A1C 4.8 % (4.0-6.0)
--- NOTE | 2018-01-22 22:05 | CT ---
EXAMINATION TYPE: CT ChestAbdPelvis wo/w con DATE OF EXAM: 01/22/2018 COMPARISON: 11/22/2017 HISTORY: 52-year-old male Follow up for lung CA. TECHNIQUE: Contiguous axial scanning of the chest, abdomen, and pelvis performed without and with IV Contrast, patient injected with 100 mL of Isovue 300. Delayed images through the kidneys were obtaine d. Coronal/sagittal reconstructions performed. CT DLP: 2766 mGycm Automated exposure control for dose reduction was used. FINDINGS: Chest: Heart is normal size without pericardial effusion. Coronary vascular calcifications are present. Aorta normal caliber with bovine configuration to the aortic arch. Stable soft tissue density encasing the left hilar structures without significant interval change. St joyce and patchy densities extend from the left infrahilar region to the posterior pleural surface an d could reflect post radiation therapy changes. Small left pleural effusion is slightly increased. Prominent 1.7 cm right hilar lymph node is unchanged. Otherwise, no thoracic lymphadenopathy by CT si ze criteria. Mild emphysematous change. No new pulmonary nodules or mass. ABDOMEN: No focal liver lesion. There is nonspecific mild circumferential gallbladder wall thickening. Wall th ickening was present previously as well. No abnormal gallbladder distention. Portal venous system lionel ears patent. No biliary ductal dilatation. Right adrenal gland mass measures 4.2 x 2.8 cm versus 4.3 x 3.2 cm, previously. This is stable to min imally smaller Left adrenal gland mass measures 2.4 x 2.1 cm versus 2.3 x 2.2 cm, previously. Not sig nificantly changed. Scattered nonenlarged and borderline sized mesenteric lymph nodes are redemonstrated. No dilated small bowel, free fluid, or free air. Normal appendix. Scattered mild stool. Left-sided colonic diverticulosis beginning in the lower desce nding colon into the proximal sigmoid. No pericolonic inflammatory change. Pelvis: Bladder is urine distended. Prostate gland is enlarged measuring 5.7 cm wide. No abnormal fluid colle ction in the pelvis. A few scattered nonenlarged and borderline sized iliac and inguinal chain lymph nodes are unchanged. Multiple pelvic phlebolith. Bones: Mild degenerative changes at the hips. Degenerative disc disease mid thoracic spine and facet arthrop athy lower lumbar spine. No osseous destructive process. IMPRESSION: 1. STABLE LEFT HILAR SOFT TISSUE ENCASEMENT LIKELY CORRESPONDING TO SITE OF TREATED DISEASE. THERE IS ALSO STABLE PATCHY DENSITY WHICH CONTINUES TO EXTEND POSTERIORLY FROM THE INFRAHILAR REGION PROBABLY POST RADIATION THERAPY CHANGE. 2. A SMALL LEFT PLEURAL EFFUSION IS SLIGHTLY LARGER. 3. BILATERAL ADRENAL MASSES MEASURING UP TO 4.2 CM ARE RELATIVELY STABLE. THE ONE ON THE RIGHT MAY BE MINIMALLY SMALLER. 4. PROMINENT 1.7 CM RIGHT HILAR LYMPH NODE IS UNCHANGED. 5. SCATTERED NONENLARGED AND BORDERLINE SIZED MESENTERIC LYMPH NODES ARE LARGELY UNCHANGED. 6. LEFT-SIDED COLONIC DIVERTICULOSIS WITHOUT ACUTE DIVERTICULITIS. PROSTATOMEGALY (5.7 CM WIDE). MILD EMPHYSEMA AND CAD.
[2018-01-22] MEDS: LORazepam 2 MG/ML INJ IV PRN (22:41)
[2018-01-23] MEDS: SODIUM CHLORIDE 0.9% 1,000 ML IV SCH ×3 (05:27→23:04)
[2018-01-23] MEDS: LEVOTHYROXINE 137 MCG TAB PO SCH (05:28)
[2018-01-23] MEDS: LORazepam 2 MG/ML INJ IV PRN (07:20)
[2018-01-23] MEDS: DIAZEPAM 5 MG TAB PO SCH (08:00)
[2018-01-23] MEDS: NICOTINE 21MG/24HR PATCH TRANSDERM SCH (08:00)
[2018-01-23 08:46] LABS: Basophils # (A) 0.1 k/uL (0-0.2); Basophils % (A) 1 %; Eosinophils # (A) 0.4 k/uL (0-0.7); Eosinophils % (A) 9 %; HGB 13.5 gm/dL (13.0-17.5); Lymphocytes # (A) 0.6 k/uL (1.0-4.8); Lymphocytes % (A) 13 %; MCH 30.6 pg (25.0-35.0); MCHC 35.4 g/dL (31.0-37.0); MCV 86.5 fL (80.0-100.0); Mean Platelet Volume 6.6; Monocytes # (A) 0.3 k/uL (0-1.0); Monocytes % (A) 6 %; Neutrophils # (A) 2.9 k/uL (1.3-7.7); Neutrophils % (A) 69 %; Platelet Count 150 k/uL (150-450); RBC 4.39 m/uL (4.30-5.90); RDW 13.9 % (11.5-15.5); WBC 4.2 k/uL (3.8-10.6)
--- NOTE | 2018-01-23 09:10 | P.PN ---
Subjective his is a pleasant 52-year-old white male patient of my partner, Dr. Newton. He had not been in the office since his diagnosis with lung carcinoma in March 2016. He is been primarily following up with hematology oncology. His reports that approximately 5 days ago, the patient began being confused. This should been worse first thing in the morning and later in the evening. It has worsened with time. Labs done by he mock showed a TSH elevated at approximately 15. With the increased confusion, he was brought to emergency room. He was found to be hyponatremic, hyperkalemic, and apparently euvolemic. His does report that he has not been eating and drinking is much lately. He takes Zoloft for depression, is been taking half a tablet of 50 mg for several years. He is on Synthroid as well 125 g daily. He also takes diazepam. In the emergency room CT brain with contrast failed to show any metastases to lungs. The ER physician, he did have metastases to the kidneys. He is resting comfortably in the bed on the oncology unit. He is slightly confused. His is at bedside and we discussed his care. 01/23/2018: Patient become more agitated overnight. Nephrology and oncology notes were reviewed. Oncology indicates that the patient's been trying alternative treatment such as marijuana oil. This certainly could contribute to his symptomatology. His is at bedside today. He will let staff get close enough to him. He is threatening them with harm at this time. Labs are pending and that confirm whether they've been drawn or not due to his mental status. Objective - Vital Signs Vital signs: Vital Signs Temp 98.0 F 01/23/18 05:24 Pulse 91 01/23/18 05:24 Resp 18 01/23/18 05:24 BP 109/73 01/23/18 05:24 Pulse Ox 97 01/23/18 05:24 Intake & Output 01/22/18 01/23/18 01/23/18 18:59 06:59 18:59 Intake Total 625 825 Balance 625 825 Weight 68.039 kg Intake: Intake, IV Titration 625 825 Amount Magnesium Sulfate-D5w Pmx 100 1 gm In Dextrose/Water 1 100ml.bag @ 100 mls/hr IVPB Q1H [facility] Rx#: [id number] Sodium Chloride 0.9% 1, 525 825 000 ml @ 75 mls/hr IV . [id number] [facility] Rx#:[id number] Other: Voiding Method Toilet Toilet Toilet # Voids 1 - Exam GENERAL: Awake, thin, confused and agitated at this time NEUROLOGICAL: Cranial nerves II through XII grossly intact. Normal speech, normal gait. PSYCH:angry, agitiated, confused exam was deferred as patient would not let me get near him without threat of harm to the physician - Labs CBC & Chem 7: 01/23/18 07:53 01/22/18 06:33 Labs: Abnormal Lab Results - Last 24 Hours (Table) 01/23/18 Range/Units 07:53 Hct 38.0 L (39.0-53.0) % Lymphocytes # 0.6 L (1.0-4.8) k/uL Assessment and Plan (1) Small cell lung cancer Current Visit: Yes Status: Acute Code(s): C34.90 - MALIGNANT NEOPLASM OF UNSP PART OF UNSP BRONCHUS OR LUNG SNOMED Code(s): 519538731 (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 Current Visit: Yes Status: Acute Code(s): C79.70 - SECONDARY MALIGNANT NEOPLASM OF UNSPECIFIED ADRENAL GLAND SNOMED Code(s): 35760716 (3) Hallucination Current Visit: Yes Status: Acute Code(s): R44.3 - HALLUCINATIONS, UNSPECIFIED SNOMED Code(s): 0642580 (4) Hyperkalemia Current Visit: Yes Status: Acute Code(s): E87.5 - HYPERKALEMIA SNOMED Code (s): 27114360 (5) Hyponatremia Current Visit: Yes Status: Acute Code(s): E87.1 - HYPO-OSMOLALITY AND HYPONATREMIA SNOMED Code(s): 38303617 (6) Hypothyroidism Current Visit: Yes Status: Acute Code(s): E03.9 - HYPOTHYROIDISM, UNSPECIFIED SNOMED Code(s): 91768866 (7) Encephalopathy acute Current Visit: Yes Status: Acute Code(s): G93.40 - ENCEPHALOPATHY, UNSPECIFIED SNOMED Code(s): 01485884 Plan: He has a multifactorial history of issues that could lead to his current encephalopathy, I will add Haldol 5 mg twice a day, and have him get a stat dose at this time. Await further recommendations from nephrology and oncology. His Synthroid has been increased, his Zoloft been discontinued, and he had remained on IV fluid until his agitation and prevented this. He will be Reevaluated in the next 24 hours.
[2018-01-23] MEDS ORDERED: HALOPERIDOL LACTATE 5 MG/ML 1 ML VIAL IM PRN (09:11)
[2018-01-23 10:00] LABS: Anion Gap 12 mmol/L; Blood Urea Nitrogen 7 mg/dL (9-20); Calcium 9.6 mg/dL (8.4-10.2); Carbon Dioxide 24 mmol/L (22-30); Chloride 97 mmol/L (98-107); Glucose 75 mg/dL (74-99); Magnesium 1.8 mg/dL (1.6-2.3); Potassium 4.9 mmol/L (3.5-5.1); Sodium 133 mmol/L (137-145); Uric Acid 3.6 mg/dL (3.5-8.5)
[2018-01-23] MEDS ORDERED: COSYNTROPIN 0.25 MG VIAL IVP ONE (11:04)
--- NOTE | 2018-01-23 11:22 | P.PN ---
Subjective Patient is seen in follow-up for hyponatremia. Sodium level did improve with IV hydration and is up to 133 this morning. Patient has been quite confused and combative. He does a history of lung cancer with adrenal metastasis and is being followed by oncology. Blood pressures are stable. His cortisol level was noted to be low at 2. Vital signs are stable. General: The patient appeared well nourished and normally developed. HEENT: Head exam is unremarkable. Neck is without jugular venous distension. LUNGS: Lungs are clear to auscultation and percussion. Breath sounds decreased. HEART: Rate and Rhythm are regular. First and second heart sounds normal. No murmurs, rubs or gallops. ABDOMEN: Abdominal exam reveals normal bowel sounds. Non-tender and non- distended. No evidence of peritonitis. EXTREMITITES: No clubbing, cyanosis, or edema. Objective - Vital Signs Vital signs: Vital Signs Temp 98.0 F 01/23/18 05:24 Pulse 91 01/23/18 05:24 Resp 18 01/23/18 05:24 BP 109/73 01/23/18 05:24 Pulse Ox 97 01/23/18 05:24 Intake & Output 01/22/18 01/23/18 01/23/18 18:59 06:59 18:59 Intake Total 625 825 Balance 625 825 Weight 68.039 kg Intake: Intake, IV Titration 625 825 Amount Magnesium Sulfate-D5w Pmx 100 1 gm In Dextrose/Water 1 100ml.bag @ 100 mls/hr IVPB Q1H [facility] Rx#: [id number] Sodium Chloride 0.9% 1, 525 825 000 ml @ 75 mls/hr IV . [id number] [facility] Rx#:[id number] Other: Voiding Method Toilet Toilet Toilet # Voids 1 - Labs CBC & Chem 7: 01/23/18 07:53 01/23/18 07:53 Labs: Abnormal Lab Results - Last 24 Hours (Table) 01/23/18 01/23/18 01/23/18 Range/Units 07:30 07:53 07:53 Hct 38.0 L (39.0-53.0) % Lymphocytes # 0.6 L (1.0-4.8) k/uL Sodium 133 L (137-145) mmol/L Chloride 97 L (98-107) mmol/L BUN 7 L (9-20) mg/dL Creatinine 0.50 L (0.66-1.25) mg/dL Osmolality 268 L (280-301) mosm/kg Ur Random Sodium 94 H (30-90) mmol/L Assessment and Plan Plan: Assessment: 1. Hypovolemic hyponatremia improving with IV hydration. Sodium level up to 133 this morning. Concern for adrenal insufficiency especially due to adrenal metastasis. His cortisol level this morning was low at 2. 2. Hypomagnesemia from poor oral intake. Improved post replacement. 3. Small cell lung cancer with metastasis. 4. Hypothyroidism maintained on Synthroid. Dose increased. Plan: Encouraged oral solute intake. Added ensure 3 times daily. 1500 mL fluid restriction. Continue normal saline at 75 mL an hour for now. Will perform cosyntropin stimulation test today. If positive, he will need to be started on Solu-Cortef.
[2018-01-23] MEDS: LORazepam 2 MG/ML INJ IM PRN ×2 (13:32→23:16)
--- NOTE | 2018-01-23 14:31 | PN ---
PROGRESS NOTE DATE OF SERVICE: 01/23/18 Devin is seen today as a followup. He remained agitated. He was given Haldol with some relief, but overall he remained agitated and confused. He under underwent a CT scan of the chest, abdomen, and pelvis yesterday, which revealed stable disease. PHYSICAL EXAMINATION: He is alert. He does answer questions appropriately and follows commands, but he is confused to place and time. His vital signs are temperature 98.0, pulse is 91, respiration 18, blood pressure 109/73. HEENT: Normocephalic, atraumatic. NECK: Supple. Chest equal expansion bilaterally. Lungs are clear. Heart is regular rate and rhythm. ABDOMEN: Soft, nontender. Extremities revealed no edema. LABORATORY DATA: WBC of 4.2, hemoglobin 13.5, hematocrit 38.0, platelets are 150. Sodium 133, chloride is 97, potassium 4.9, BUN is 7, creatinine 0.5. IMPRESSION: 1. Metastatic squamous cell carcinoma of the lung. The patient's recent CT scan of the chest, abdomen and pelvis revealed no evidence of disease progression. 2. Hyponatremia. It appears to be improving. I doubt this is contributing to his current confusion. 3. Confusion and altered mental status. RECOMMENDATION: 1. I did discuss the recent CT scan of the chest, abdomen and pelvis with the patient and his at bedside today. 2. Although may continue Haldol as needed for his agitation. 3. We will proceed with an MRI of the brain to rule out brain metastases since his CT scan of the brain was negative. Thank you very much. MMODL / IJN: [id number] /
[2018-01-24] MEDS: LEVOTHYROXINE 137 MCG TAB PO SCH (05:25)
[2018-01-24] MEDS: LORazepam 2 MG/ML INJ IM PRN (06:49)
[2018-01-24 08:23] LABS: Basophils % (A) 1 %; Eosinophils # (A) 0.3 k/uL (0-0.7); Eosinophils % (A) 4 %; HCT 38.9 % (39.0-53.0); HGB 13.3 gm/dL (13.0-17.5); Lymphocytes # (A) 0.4 k/uL (1.0-4.8); Lymphocytes % (A) 7 %; MCH 30.1 pg (25.0-35.0); MCHC 34.2 g/dL (31.0-37.0); Mean Platelet Volume 6.4; Monocytes # (A) 0.4 k/uL (0-1.0); Monocytes % (A) 6 %; Neutrophils # (A) 5.1 k/uL (1.3-7.7); Neutrophils % (A) 81 %; Platelet Count 131 k/uL (150-450); RBC 4.42 m/uL (4.30-5.90); RDW 13.7 % (11.5-15.5); WBC 6.3 k/uL (3.8-10.6)
[2018-01-24 08:28] LABS: Anion Gap 13 mmol/L; Blood Urea Nitrogen 9 mg/dL (9-20); Calcium 9.4 mg/dL (8.4-10.2); Carbon Dioxide 24 mmol/L (22-30); Chloride 97 mmol/L (98-107); Glucose 84 mg/dL (74-99); Potassium 4.7 mmol/L (3.5-5.1); Sodium 134 mmol/L (137-145)
[2018-01-24] MEDS: NICOTINE 21MG/24HR PATCH TRANSDERM SCH (09:36)
[2018-01-24] MEDS: SODIUM CHLORIDE 0.9% 1,000 ML IV SCH (09:37)
[2018-01-24] MEDS: DIAZEPAM 5 MG TAB PO SCH (09:38)
--- NOTE | 2018-01-24 11:39 | XR ---
EXAMINATION TYPE: XR chest 2V DATE OF EXAM: 01/24/2018 COMPARISON: 01/21/2018 HISTORY: 52 year-old male chronic, febrile TECHNIQUE: Frontal and lateral views FINDINGS: Heart normal size. Mild peribronchial cuffing. Stable left perihilar density and strandy left mid junaid g opacity. No new area of consolidation or pleural effusion. IMPRESSION: Stable left perihilar soft tissue and strandy left mid lung density likely reflecting site of patient 's primary neoplasm and treated disease with posttreatment change. There is peribronchial cuffing which could reflect bronchitis or asthma. No new focal infiltrate.
[2018-01-24] MEDS ORDERED: HALOPERIDOL LACTATE 5 MG/ML 1 ML VIAL IM PRN (13:08)
--- NOTE | 2018-01-24 14:37 | P.PN ---
Subjective Progress Note Date: 01/24/18 This is a pleasant 52-year-old white male patient of my partner, Dr. Newton. He had not been in the office since his diagnosis with lung carcinoma in March 2016. He is been primarily following up with hematology oncology. His reports that approximately 5 days ago, the patient began being confused. This should been worse first thing in the morning and later in the evening. It has worsened with time. Labs done by he mock showed a TSH elevated at approximately 15. With the increased confusion, he was brought to emergency room. He was found to be hyponatremic, hyperkalemic, and apparently euvolemic. His does report that he has not been eating and drinking is much lately. He takes Zoloft for depression, is been taking half a tablet of 50 mg for several years. He is on Synthroid as well 125 g daily. He also takes diazepam. In the emergency room CT brain with contrast failed to show any metastases to lungs. The ER physician, he did have metastases to the kidneys. He is resting comfortably in the bed on the oncology unit. He is slightly confused. His is at bedside and we discussed his care. 01/23/2018: Patient become more agitated overnight. Nephrology and oncology notes were reviewed. Oncology indicates that the patient's been trying alternative treatment such as marijuana oil. This certainly could contribute to his symptomatology. His is at bedside today. He will let staff get close enough to him. He is threatening them with harm at this time. Labs are pending and that confirm whether they've been drawn or not due to his mental status. Above notes per Dr. Burgess 01/24/2018 Patient seen and examined at the bedside with Dr. Newton. No family present. Patient remains confused at times. Patient is very lethargic today and only able to answer a few questions. He is receiving Ativan, Haldol, and Valium. Patient is scheduled for MRI of the brain today. Oncology is following. Patients sodium today is 134. Nephrology is following. Objective - Vital Signs Vital signs: Vital Signs Temp 99.8 F H 01/24/18 07:45 Pulse 112 H 01/24/18 07:45 Resp 20 01/24/18 07:45 BP 133/67 01/24/18 07:45 Pulse Ox 97 01/24/18 07:45 Intake & Output 01/23/18 01/24/18 01/24/18 18:59 06:59 18:59 Intake Total 710 Balance 710 Weight 68.039 kg Intake: Oral 710 Other: Voiding Method Toilet Toilet # Voids 2 2 1 # Bowel Movements 2 1 - Exam GENERAL: This is a 52-year-old male who remains confused and is very lethargic at the time of examination. HEENT: Head is atraumatic, normocephalic. Pupils are equal, round, and reactive to light. Sclerae anicteric. Conjunctivae are clear. Mucus membranes of the mouth are moist. Neck is supple. RESPIRATORY: Clear to ausculation. No wheezes, rales, or rhonchi. No use of accessory muscles. Patient maintaining oxygen saturation greater than 92% CARDIOVASCULAR: Regular rate and rhythm. S1 and S2 noted. No systolic or diastolic murmur auscultated. No JVD noted. No S3 or S4 noted. GASTROINTESTINAL: No distention noted. Abdomen soft and round. Normal active bowel sounds auscultated x 4 quadrants. INTEGUMENTARY: No cyanosis. No rashes noted. No cellulitis noted. EXTREMITIES: 2+ peripheral pulses. No evidence of peripheral edema. 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 Dose has been increased Hypomagnesemia from poor oral intake, improved Hyperkalemia, resolved PLAN: Oncology on consult. Appreciate recommendations and input Patient scheduled for MRI today Nephrology on consult. Appreciate recommendations and input Continue Yaima Dunn, and Valium. Decrease dose of Haldol due to lethargy Home meds as appropriate Monitor labs GI prophylaxis: Protonix 40 mg IV Daily DVT prophylaxis: CRISELDA hose to bilateral lower extremities Monitor vital signs and address as appropriate Further recommendations pending patient's course Nurse practitioner note has been reviewed by physician. Signing provider agrees with the documented findings, assessment, and plan of care.
--- NOTE | 2018-01-24 15:11 | PN ---
PROGRESS NOTE Patient is seen for followup for hyponatremia. It appears that the patient does have an underlying adrenal insufficiency. His Cortrosyn stimulation test was positive with the cortisone increasing from 2 at baseline to 15 and usually if it is more than double that goes along with the diagnosis. Currently patient is on saline and his sodium is up to 134. His admission sodium was 126. EXAMINATION: Today, patient is comfortable. Blood pressure is 133/67, heart rate 112 per minute. He is afebrile. Examination of the heart: S1, S2. Examination lungs: Bilateral breath sounds are heard. Abdomen is soft, nontender. Examination lower extremities shows no significant edema. LABS: Show sodium 134, potassium 4.7, serum creatinine 0.56, BUN 9, calcium 9.4. ASSESSMENT: 1. Hyponatremia significantly with adrenal insufficiency, currently improved. Cortrosyn stimulation test appears to be positive. The patient does have adrenal metastasis. He will benefit from a baseline steroid. 2. Hypomagnesemia from decreased oral intake, now improved status post replacement. 3. Hyperkalemia on initial admission, now improved. This goes along with the diagnosis of adrenal insufficiency. PLANS: Continue with the normal saline and the patient will benefit from starting Cortef. Consider endocrine consult as well. MMODL / IJN: [id number] /
[2018-01-24 15:16] LABS: Appearance,Urine Clear (Clear); Bacteria,Urine Rare /hpf; Bilirubin,Urine Negative (Negative); Blood,Urine Trace (Negative); Color,Urine Yellow; Glucose,Urine (UA) Negative (Negative); Hyaline Casts,Urine 1 /lpf (0-2); Ketones,Urine 1+ (Negative); Leukocyte Esterase,Urine Negative (Negative); Mucus,Urine Rare /hpf; Nitrite,Urine Negative (Negative); Protein,Urine Negative (Negative); RBC,Urine 2 /hpf (0-5); Specific Gravity,Urine 1.012 (1.001-1.035); Urobilinogen,Urine <2.0 mg/dL (<2.0); WBC,Urine 1 /hpf (0-5)
--- NOTE | 2018-01-24 17:26 | MR ---
EXAMINATION TYPE: MR brain wo/w con DATE OF EXAM: 01/24/2018 COMPARISON: CT brain 01/21/2018 HISTORY: Altered mental status and lung cancer TECHNIQUE: Multiplanar, multisequence images of the brain and brainstem is performed without and with IV contras t, utilizing 10 mL intravenous Gadavist . FINDINGS: Diffusion weighted images demonstrate no evidence of a recent infarct or other diffusion ab normality. There is no extra-axial fluid collection. Question some confluent, symmetric, periventric ular white matter hyperintensity on inversion recovery and T2-weighted sequences, findings may be at least in part technical, there is motion on the exam, fast brain protocol utilized. The ventricular s ystem and cisternal spaces are normal in size and appearance. The brain volume is age appropriate. Midline structures demonstrate normal morphology. The craniocervical junction appears within normal limits. Post contrast images demonstrate no abnormal enhancement. The dural venous sinuses appear pa tent. The visualized sinuses are clear and the globes are intact. IMPRESSION: No definite abnormality evident to account for patient's symptoms. 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 Metastatic disease is not evident.
--- NOTE | 2018-01-24 18:36 | P.PN ---
Subjective Progress Note Date: 01/24/18 Principal diagnosis: agitation, AMS Pt seen in f/u today, MRI results were not yet available when pt seen, no family at bedside. Pt did answer no when asked if nauseated or having trouble breathing. Objective - Vital Signs Vital signs: Vital Signs Temp 98.5 F 01/24/18 14:26 Pulse 117 H 01/24/18 16:00 Resp 20 01/24/18 16:00 BP 90/63 01/24/18 14:26 Pulse Ox 91 L 01/24/18 14:26 Intake & Output 01/23/18 01/24/18 01/24/18 18:59 06:59 18:59 Intake Total 710 Output Total 400 Balance 710 -400 Weight 68.039 kg 68.039 kg Intake: Oral 710 Output: Urine 400 Other: Voiding Method Toilet Toilet Urinal # Voids 2 2 1 # Bowel Movements 2 1 - Constitutional Constitutional Comment(s): whole body tremor noted, forehead warm to touch, extremities were cool to touch General appearance: Present: average body habitus, cooperative, mild distress - EENT Eyes: Present: anicteric sclerae - Respiratory Respiratory: left: rhonchi (anterior) - Cardiovascular Heart sounds: normal: S1, S2 - Peripheral edema leg Peripheral Edema: bilateral: None - Gastrointestinal General gastrointestinal: Present: normal bowel sounds, soft - Integumentary Integumentary: Present: pale - Psychiatric Psychiatric Comment(s): unable to assess adequately - Labs CBC & Chem 7: 01/24/18 07:30 01/24/18 07:30 Labs: Abnormal Lab Results - Last 24 Hours (Table) 01/24/18 01/24/18 01/24/18 Range/Units 07:30 07:30 15:00 Hct 38.9 L (39.0-53.0) % Plt Count 131 L (150-450) k/uL Lymphocytes # 0.4 L (1.0-4.8) k/uL Sodium 134 L (137-145) mmol/L Chloride 97 L (98-107) mmol/L Creatinine 0.56 L (0.66-1.25) mg/dL Urine Ketones 1+ H (Negative) Urine Blood Trace H (Negative) Urine Bacteria Rare H (None) /hpf Urine Mucus Rare H (None) /hpf - Imaging and Cardiology MRI - head: report reviewed Assessment and Plan (1) Small cell lung cancer Narrative/Plan: None fo the imaging done shows convincing evidence of disease progression, MRI of the brain did not report metastatic disease. Unclear at this time what is causing pt symptoms, Na+ nearly normal now. Current Visit: Yes Status: Acute Priority: Medium Code(s): C34.90 - MALIGNANT NEOPLASM OF UNSP PART OF UNSP BRONCHUS OR LUNG SNOMED Code(s): 202440949 Plan: Pancultures ordered due to suspicion for rigors on exam. Urine and CXR are not suspicious, blood cultures pending.
[2018-01-25] MEDS: SODIUM CHLORIDE 0.9% 1,000 ML IV SCH ×2 (01:12→09:40)
[2018-01-25] MEDS: LORazepam 2 MG/ML INJ IM PRN (01:12)
[2018-01-25] MEDS: LEVOTHYROXINE 137 MCG TAB PO SCH (05:21)
[2018-01-25 08:08] LABS: Basophils % (A) 1 %; Eosinophils # (A) 0.2 k/uL (0-0.7); Eosinophils % (A) 4 %; HCT 35.2 % (39.0-53.0); HGB 11.8 gm/dL (13.0-17.5); Lymphocytes # (A) 0.5 k/uL (1.0-4.8); Lymphocytes % (A) 10 %; MCH 29.5 pg (25.0-35.0); MCHC 33.4 g/dL (31.0-37.0); MCV 88.2 fL (80.0-100.0); Mean Platelet Volume 6.7; Monocytes # (A) 0.4 k/uL (0-1.0); Monocytes % (A) 8 %; Neutrophils # (A) 3.5 k/uL (1.3-7.7); Neutrophils % (A) 75 %; Platelet Count 116 k/uL (150-450); RBC 3.99 m/uL (4.30-5.90); RDW 13.6 % (11.5-15.5); WBC 4.6 k/uL (3.8-10.6)
[2018-01-25 08:28] LABS: ALT 23 U/L (21-72); AST 20 U/L (17-59); Albumin 3.7 g/dL (3.5-5.0); Alkaline Phosphatase 56 U/L (38-126); Anion Gap 9 mmol/L; Blood Urea Nitrogen 10 mg/dL (9-20); Calcium 8.8 mg/dL (8.4-10.2); Carbon Dioxide 23 mmol/L (22-30); Chloride 101 mmol/L (98-107); Glucose 88 mg/dL (74-99); Potassium 4.5 mmol/L (3.5-5.1); Sodium 133 mmol/L (137-145); Total Bilirubin 1.3 mg/dL (0.2-1.3); Total Protein 5.9 g/dL (6.3-8.2)
[2018-01-25] MEDS ORDERED: PANTOPRAZOLE 40 MG/10 ML VIAL IVP SCH (09:00)
[2018-01-25] MEDS: DIAZEPAM 5 MG TAB PO SCH (09:39)
[2018-01-25] MEDS: NICOTINE 21MG/24HR PATCH TRANSDERM SCH (09:39)
--- NOTE | 2018-01-25 14:13 | P.PN ---
Subjective This is a pleasant 52-year-old white male patient of my partner, Dr. Newton. He had not been in the office since his diagnosis with lung carcinoma in March 2016. He is been primarily following up with hematology oncology. His reports that approximately 5 days ago, the patient began being confused. This should been worse first thing in the morning and later in the evening. It has worsened with time. Labs done by he mock showed a TSH elevated at approximately 15. With the increased confusion, he was brought to emergency room. He was found to be hyponatremic, hyperkalemic, and apparently euvolemic. His does report that he has not been eating and drinking is much lately. He takes Zoloft for depression, is been taking half a tablet of 50 mg for several years. He is on Synthroid as well 125 g daily. He also takes diazepam. In the emergency room CT brain with contrast failed to show any metastases to lungs. The ER physician, he did have metastases to the kidneys. He is resting comfortably in the bed on the oncology unit. He is slightly confused. His is at bedside and we discussed his care. 01/23/2018: Patient become more agitated overnight. Nephrology and oncology notes were reviewed. Oncology indicates that the patient's been trying alternative treatment such as marijuana oil. This certainly could contribute to his symptomatology. His is at bedside today. He will let staff get close enough to him. He is threatening them with harm at this time. Labs are pending and that confirm whether they've been drawn or not due to his mental status. Above notes per Dr. Burgess 01/24/2018 Patient seen and examined at the bedside with Dr. Newton. No family present. Patient remains confused at times. Patient is very lethargic today and only able to answer a few questions. He is receiving Ativan, Haldol, and Valium. Patient is scheduled for MRI of the brain today. Oncology is following. Patients sodium today is 134. Nephrology is following. 01/25/2018 Patient seen and examined at the bedside. Patient is more awake this morning. Patient able to answer questions and have a short conversation with INSTRUCTOR PRIVATE. Patient able to state correct location, year, and his name. MRI did not reveal evidence of metastatic disease. Patient with persistent cough this morning which patient reports has been chronic since lung CA diagnosis. Spoke with patient regarding JES if he qualifies. Patient states he does not want to go to rehab and he wants to go directly home and will have therapy at home. INSTRUCTOR PRIVATE did observe patient walking to the bathroom independently. Sodium this morning is 133, down from 134. Patient did have a low grade temp of 99.8 yesterday. He is afebrile this morning. No rigors noted upon examination. Blood cultures were ordered and are currently pending. Objective - Vital Signs Vital signs: Vital Signs Temp 98.4 F 01/24/18 21:30 Pulse 99 01/25/18 08:00 Resp 17 01/25/18 08:00 BP 114/77 01/25/18 07:00 Pulse Ox 98 01/25/18 07:00 Intake & Output 01/24/18 01/25/18 01/25/18 18:59 06:59 18:59 Intake Total 1140 360 Output Total 400 Balance -400 1140 360 Weight 68.039 kg 68.039 kg Intake: Intake, IV Titration 900 Amount Sodium Chloride 0.9% 1, 900 000 ml @ 75 mls/hr IV . [id number] [facility] Rx#:[id number] Oral 240 360 Output: Urine 400 Other: Voiding Method Urinal Toilet Toilet # Voids 1 2 # Bowel Movements 1 - Exam GENERAL: This is a 52-year-old male who is still somewhat lethargic, but improved since yesterday. HEENT: Head is atraumatic, normocephalic. Pupils are equal, round, and reactive to light. Sclerae anicteric. Conjunctivae are clear. Mucus membranes of the mouth are moist. Neck is supple. RESPIRATORY: Patient with scattered rhonchi throughout.. Frequent coughing noted. No use of accessory muscles. Patient maintaining oxygen saturation greater than 92% CARDIOVASCULAR: Regular rate and rhythm. S1 and S2 noted. No systolic or diastolic murmur auscultated. No JVD noted. No S3 or S4 noted. GASTROINTESTINAL: No distention noted. Abdomen soft and round. Normal active bowel sounds auscultated x 4 quadrants. INTEGUMENTARY: No cyanosis. No rashes noted. No cellulitis noted. EXTREMITIES: 2+ peripheral pulses. No evidence of peripheral edema. PSYCHIATRIC: A/O x 3. Conversing with provider. 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 Dose has been increased Hypomagnesemia from poor oral intake, improved Hyperkalemia, resolved PLAN: Oncology on consult. Appreciate recommendations and input Case discussed with Dr. Gan. Will hold off on initiating steroids at this time. Dr. Gan recommends endocrinology consultation. However, there is no hardware trainer available that comes to this facility. Patient may schedule appointment with Dr. Carolyn Gregorio or Dr. Brown Ching on an outpatient basis after he is discharged from the hospital. Will continue to monitor sodium levels. Discontinue IV fluids. Avoid Haldol and Ativan if possible Home meds as appropriate Monitor labs GI prophylaxis: Protonix 40 mg IV Daily DVT prophylaxis: CRISELDA hose to bilateral lower extremities Monitor vital signs and address as appropriate PT/OT consult Discharge plan: Await PT/OT recommendations to determine if patient is safe to be discharged home safely. Patient does not want to go to [facility] when asked and states "I want to go home. I can have therapy at home". Further recommendations pending patient's course Nurse practitioner note has been reviewed by physician. Signing provider agrees with the documented findings, assessment, and plan of care.
[2018-01-25] MEDS ORDERED: HYDROcodone/APAP 10-325MG 1 EACH TAB PO PRN ×2 (16:18→16:57)
[2018-01-25] MEDS ORDERED: HALOPERIDOL LACTATE 5 MG/ML 1 ML VIAL IM PRN (16:22)
[2018-01-25] MEDS: LORazepam 0.5 MG TAB PO PRN ×2 (16:41→23:57)
--- NOTE | 2018-01-25 18:13 | PN ---
PROGRESS NOTE The patient is seen for followup for hyponatremia. His serum sodium has improved. Patient is maintained on IV saline. His sodium was up to 133 this morning. Yesterday, it was 134. Admission serum sodium was 126. The Cortrosyn stimulation test had a baseline cortisol of 9 and not 2, with which he did not meet the criteria for adrenal insufficiency, as the level did not double. Overall, patient seems fairly well. EXAMINATION: Blood pressure was 114/77, heart rate 101 per minute. He is afebrile. HEART: S1, S2. LUNGS: Bilateral breath sounds are heard. Abdomen is soft, nontender. Lower extremities show no evidence of edema. EQUESTRIAN TRAINER is grossly intact. He is moving all 4 extremities. LABS: Show sodium 133, potassium 4.5, chloride 101, BUN 10 and creatinine 0.52. ASSESSMENT: 1. Hyponatremia which appeared to be hypovolemic and improved with normal saline. Serum sodium is 133 from 134 yesterday. The patient is encouraged to increase his protein intake. I will discontinue the normal saline. He should get an endocrine evaluation to rule out adrenal insufficiency in view of adrenal metastases. I will hold off on starting Cortef for now. 2. Small-cell lung cancer with evidence with no evidence of progression of disease, according to Oncology. MMODL / IJN: [id number] /
[2018-01-25 22:59] VITALS: BP 111/75; PULSE 71; RESP 16; TEMP 97.6
[2018-01-26 07:52] LABS: Basophils % (A) 1 %; Eosinophils # (A) 0.4 k/uL (0-0.7); Eosinophils % (A) 8 %; HCT 31.3 % (39.0-53.0); HGB 10.9 gm/dL (13.0-17.5); Lymphocytes # (A) 0.5 k/uL (1.0-4.8); Lymphocytes % (A) 12 %; MCH 30.5 pg (25.0-35.0); MCHC 34.8 g/dL (31.0-37.0); MCV 87.8 fL (80.0-100.0); Monocytes # (A) 0.3 k/uL (0-1.0); Monocytes % (A) 7 %; Neutrophils % (A) 69 %; Platelet Count 105 k/uL (150-450); RBC 3.57 m/uL (4.30-5.90); RDW 13.5 % (11.5-15.5); WBC 4.4 k/uL (3.8-10.6)
[2018-01-26 08:08] LABS: ALT 22 U/L (21-72); AST 15 U/L (17-59); Albumin 3.3 g/dL (3.5-5.0); Alkaline Phosphatase 50 U/L (38-126); Anion Gap 10 mmol/L; Blood Urea Nitrogen 10 mg/dL (9-20); Calcium 8.6 mg/dL (8.4-10.2); Carbon Dioxide 24 mmol/L (22-30); Potassium 4.3 mmol/L (3.5-5.1); Total Bilirubin 0.7 mg/dL (0.2-1.3); Total Protein 5.3 g/dL (6.3-8.2)
[2018-01-26 08:45] LABS: Chloride 101 mmol/L (98-107); Glucose 80 mg/dL (74-99); Sodium 135 mmol/L (137-145)
[2018-01-26] MEDS ORDERED: PANTOPRAZOLE 40 MG TABLET PO SCH (09:00)
[2018-01-26] MEDS: LEVOTHYROXINE 137 MCG TAB PO SCH (10:48)
[2018-01-26] MEDS: DIAZEPAM 5 MG TAB PO SCH (10:49)
[2018-01-26] MEDS: NICOTINE 21MG/24HR PATCH TRANSDERM SCH (10:49)
--- NOTE | 2018-01-26 12:27 | P.DS ---
Providers Date of admission: 01/21/18 17:27 Expected date of discharge: 01/26/18 Attending physician: Camilo Burgess Consults: 01/21/18 17:28 Consult Physician Routine Consulting Provider: Ja Babb Consult Reason/Comments: Hyponatremia/hyperkalemia Do you want consulting provider notified?: Yes 01/22/18 11:00 Consult Physician Routine Consulting Provider: Lex Boudreaux Consult Reason/Comments: SIADH suspect Do you want consulting provider notified?: Yes Primary care physician: [facility] Course: This is a pleasant 52-year-old white male patient of my partner, Dr. Newton. He had not been in the office since his diagnosis with lung carcinoma in March 2016. He is been primarily following up with hematology oncology. His reports that approximately 5 days ago, the patient began being confused. This should been worse first thing in the morning and later in the evening. It has worsened with time. Labs done by he mock showed a TSH elevated at approximately 15. With the increased confusion, he was brought to emergency room. He was found to be hyponatremic, hyperkalemic, and apparently euvolemic. His does report that he has not been eating and drinking is much lately. He takes Zoloft for depression, is been taking half a tablet of 50 mg for several years. He is on Synthroid as well 125 g daily. He also takes diazepam. In the emergency room CT brain with contrast failed to show any metastases to lungs. The ER physician, he did have metastases to the kidneys. He is resting comfortably in the bed on the oncology unit. He is slightly confused. His is at bedside and we discussed his care. 01/23/2018: Patient become more agitated overnight. Nephrology and oncology notes were reviewed. Oncology indicates that the patient's been trying alternative treatment such as marijuana oil. This certainly could contribute to his symptomatology. His is at bedside today. He will let staff get close enough to him. He is threatening them with harm at this time. Labs are pending and that confirm whether they've been drawn or not due to his mental status. Above notes per Dr. Burgess 01/24/2018 Patient seen and examined at the bedside with Dr. Newton. No family present. Patient remains confused at times. Patient is very lethargic today and only able to answer a few questions. He is receiving Ativan, Haldol, and Valium. Patient is scheduled for MRI of the brain today. Oncology is following. Patients sodium today is 134. Nephrology is following. 01/25/2018 Patient seen and examined at the bedside. Patient is more awake this morning. Patient able to answer questions and have a short conversation with INCOME TAX PREPARER. Patient able to state correct location, year, and his name. MRI did not reveal evidence of metastatic disease. Patient with persistent cough this morning which patient reports has been chronic since lung CA diagnosis. Spoke with patient regarding JES if he qualifies. Patient states he does not want to go to rehab and he wants to go directly home and will have therapy at home. INCOME TAX PREPARER did observe patient walking to the bathroom independently. Sodium this morning is 133, down from 134. Patient did have a low grade temp of 99.8 yesterday. He is afebrile this morning. No rigors noted upon examination. Blood cultures were ordered and are currently pending. 01/26/2018 Patient is doing well this morning. Up in the hallways ambulating. Vital signs remain stable. He is cleared for discharge. He is to follow up in the office with Dr. Newton and all consulting providers. Rx for increased synthroid dose sent to the patients pharmacy along with nicotine patches. Dr. Gan recommends endocrinology consultation. Patient may schedule appointment with Dr. Carolyn Gregorio or Dr. Brown Ching on an outpatient basis after he is discharged from the hospital. Patient was prescribed a three-day supply of Hart 10 mg 1 tablet every 6 hours as needed for pain at the time of discharge for acute pain. "Opioid Start Talking" form discussed in depth with patient. Patient verbalized understanding. Patient denied further questions or concerns. Patient signed form. Form was placed in patient's chart. MAPS was not performed as patient was only prescribed three days of narcotics. 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 Dose has been increased Hypomagnesemia from poor oral intake, improved Hyperkalemia, resolved Nurse practitioner note has been reviewed by physician. Signing provider agrees with the documented findings, assessment, and plan of care. Plan - Discharge Summary Discharge Rx Participant: No New Discharge Prescriptions: New Levothyroxine Sodium [Synthroid] 137 mcg PO DAILY@0630 #30 tab Nicotine 21Mg/24Hr Patch [Habitrol] 1 patch TRANSDERM DAILY #7 patch Continue Sertraline [Zoloft] 50 mg PO DAILY Diazepam [Valium] 5 mg PO DAILY Discontinued Levothyroxine Sodium [Synthroid] 125 mcg PO DAILY Discharge Medication List Sertraline [Zoloft] 50 mg PO DAILY 04/07/16 [History] Diazepam [Valium] 5 mg PO DAILY 04/08/16 [History] Levothyroxine Sodium [Synthroid] 137 mcg PO DAILY@0630 #30 tab 01/26/18 [Rx] Nicotine 21Mg/24Hr Patch [Habitrol] 1 patch TRANSDERM DAILY #7 patch 01/26/18 [ Rx] Follow up Appointment(s)/Referral(s): Jorge Newton Jr, DO [Doctor of Osteopathic Medicine] - 02/07/18 10:30 am Ja Babb MD [Primary Care Provider] - 1-2 days (office did not answer i left a message for them to call you and schedule an appointment if they do not please call back tomarrow to make an appointment.) Patient Instructions/Handouts: Levothyroxine (By mouth), Nicotine (Absorbed through the skin), Hyponatremia (DC), Hyperkalemia (DC), Altered Mental Status ( GEN), Hallucinations (DC), Encephalopathy (DC) Activity/Diet/Wound Care/Special Instructions: Dr. Gan recommends patient see an criminal justice instructor. Patient may schedule appointment with Dr. Carolyn Gregorio or Dr. Brown Ching on an outpatient basis after he is discharged from the hospital Repeat TSH in 4-6 weeks Repeat Sodium levels at follow up appointment with Dr. Newton Discharge Disposition: HOME SELF-CARE
--- NOTE | 2018-01-26 22:03 | PN ---
PROGRESS NOTE Patient is seen for followup for hyponatremia. Patient's serum sodium level is up to 135. He is doing well. He denies any significant complaints. Patient has been eating well. On examination, blood pressure was 111/75 last night, heart rate 71 per minute. He is afebrile. EXAMINATION OF THE HEART: S1, S2. EXAMINATION OF LUNGS: Bilateral breath sounds are heard. ABDOMEN: Soft, non-tender. Examination of lower extremities shows no significant edema. MANAGER SIGN exam is grossly intact. Labs show sodium 135, potassium 4.3, serum creatinine 0.49. ASSESSMENT: 1. Hyponatremia which was hypovolemic, currently improved. There was concern about possible underlying adrenal insufficiency. However, patient will need to follow up with Endocrinology as outpatient to be started on baseline steroids. His Cortrosyn stimulation test was not entirely positive, as the baseline cortisol was 9 and the one-hour value was 14. This should be repeated as outpatient, as patient had been on prednisone about a month ago. He is advised regarding increased protein intake and avoiding excessive free water. 2. Small cell lung cancer with adrenal metastasis. 3. Hypothyroidism, currently on Synthroid with elevated TSH. The dose has been increased. 4. Hypomagnesemia, now resolved. PLAN: Patient is stable for discharge. Follow up as outpatient with PCP. Consider endocrine consult as outpatient. Avoid excessive free water and maintain good oral protein intake. MMODL / IJN: [id number] /
--- NOTE | 2018-01-27 16:58 | CDI ---
Last Revision, July 2017 Documentation Clarification Form Date: 01/27/18 From: Dary Barnes RN,CCDS Admit Date: 01/21/2018 5:27:00 PM Patient Name: Devin Guzman Visit Number: [id number] Discharge Date: ATTENTION: The Clinical Documentation Specialists (CDI) and [facility] Coding Staff appreciate your assistance in clarifying documentation. Please respond to the clarification below the line at the bottom and electronically sign. The CDI & [facility] Coding staff will review the response and follow-up if needed. Please note: Queries are made part of the Legal Health Record. If you have any questions, please contact the author of this message via ITS. Dr. Camilo Burgess Altered mental status was documented in the ED, H&P and your progress noted. . Patient history/risk factors: Lung Cancer, Hypertension Clinical Indicators: Present with report per of being confused and has worsened with time. Vital signs on admission: 106/71 95 20 98.4 100 % RA Labs on admission: Na 126, K+ 5.4, Chloride 91, CO2 18, TSH 14,500, WBC 3.7 Chest X-ray: Chronic changes without ac pulmonary process CT Brain: negative CT Abdomen/Pelvis: Small left pleural effusion. Bilateral adrenal masses Treatment: Neuro checks per protocol Normal Saline @ 75 mls/hr IV Fluid bolus Haldol IM PRN Ativan PO PRN Synthroid Po (increased dose) Monitor Labs In your professional opinion, please clarify the etiology of the altered mental status, if known. Encephalopathy (specify Type: Metabolic, Toxic, Other, and Underlying Medical Illness) Other condition (please specify) Unable to determine Please continue to document in your progress notes and discharge summary in order to capture severity of illness and risk of mortality. Include clinical findings that support your diagnosis. MTDD
== END 2018-01-26 15:32 | disposition home or self-care (01) | DRG 71 ==
LOC: EC 13:18 → 5ONC 17:27
PROVIDERS: ADMIT Family Medicine; ATTEND Family Medicine
DX: G93.40 Encephalopathy, unspecified (principal); C79.70 Secondary malignant neoplasm of unspecified adrenal gland; C34.2 Malignant neoplasm of middle lobe, bronchus or lung; E27.40 Unspecified adrenocortical insufficiency; R44.3 Hallucinations, unspecified; E87.1 Hypo-osmolality and hyponatremia; E87.5 Hyperkalemia; E83.42 Hypomagnesemia; E86.1 Hypovolemia; I10 Essential (primary) hypertension; E03.9 Hypothyroidism, unspecified; F32.9 Major depressive disorder, single episode, unspecified; E11.9 Type 2 diabetes mellitus without complications; F41.9 Anxiety disorder, unspecified; F17.210 Nicotine dependence, cigarettes, uncomplicated; Z71.6 Tobacco abuse counseling; Z79.890 Hormone replacement therapy; Z79.899 Other long term (current) drug therapy; Z86.19 Personal history of other infectious and parasitic diseases; Z92.3 Personal history of irradiation; Z92.21 Personal history of antineoplastic chemotherapy; Z87.440 Personal history of urinary (tract) infections; Z85.528 Personal history of other malignant neoplasm of kidney; Z82.49 Family history of ischemic heart disease and other diseases of the circulatory system; Z82.3 Family history of stroke; Z80.9 Family history of malignant neoplasm, unspecified
CPT/HCPCS: 36415; 70450; 70460; 70553; 71046; 71270; 74178; 80048; 80053; 81001; 81003; 82533; 83036; 83605; 83690; 83735; 83880; 83930; 83935; 84100; 84300; 84439; 84443; 84484; 84550; 85025; 85610; 85730; 87040; 93005; 96360; 96361; 99285

== ENCOUNTER → 2018-03-28 | Outpatient (CLI) | payer MEDICARE, BC ==
[2018-03-28 14:27] LABS: Blood Urea Nitrogen 14 mg/dL (9-20)
--- NOTE | 2018-03-28 17:14 | CT ---
EXAMINATION TYPE: CT ChestAbdPelvis w con DATE OF EXAM: 03/28/2018 COMPARISON: 01/22/2018 HISTORY: 52-year-old male follow-up lung cancer TECHNIQUE: Contiguous axial scanning of the chest, abdomen, and pelvis performed with IV Contrast, pa tient injected with 100 mL of Isovue 300. Delayed images through the kidneys were obtained. Coronal/s agittal reconstructions performed. CT DLP: 1099 mGycm Automated exposure control for dose reduction was used. FINDINGS: Chest: Heart normal size without pericardial effusion. Coronary vessel calcifications are present and are re markable for coronary artery disease. Aorta normal caliber with bovine configuration to the aortic arch. Nonenlarged mediastinal lymph nodes measure up to 5 mm pretracheal region is 7 mm precarinal region, not significantly changed. 1.7 cm right hilar lymph node is unchanged. Similar mild soft tissue encas ement at the left hilum and patchy density extending posteriorly from the hilum within the left midlu ng contacting the pleural surface. An adjacent small left pleural effusion is unchanged as is parench ymal distortion, probably posttreatment change There is mild centrilobular emphysema. ABDOMEN: No focal liver lesion or biliary ductal dilatation. Gallbladder, spleen, and pancreas appear within normal limits. Right adrenal mass measures 4.1 x 2.8 cm versus 4.2 x 2.9 cm, previously. Left adrenal mass measures 2.4 x 1.9 cm versus 2.4 x 2.1 cm, previously. Scattered prominent abdominal lymph nodes measuring 8 mm in the bianca hepatis and up to 8 mm in the m esentery are unchanged. No dilated small bowel, free fluid, or free air. Normal appendix. Scattered mild stool. Sigmoid diverticulosis. Some mild wall thickening along the pr oximal sigmoid without surrounding inflammation could represent wall redundancy. Bladder nondistended. Prostate gland enlargement measuring 5.9 cm wide. Stable prominent but nonenlar ged bilateral inguinal lymph nodes. No lymphadenopathy. Bones: Degenerative changes lower lumbar spine no osseous destructive process seen. IMPRESSION: 1. STABLE MILD SOFT TISSUE ENCASEMENT OF THE LEFT HILUM AND PARENCHYMAL DISTORTION WITH PATCHY DENSIT Y EXTENDING POSTERIORLY TO THE PLEURAL SURFACE OF THE LEFT MIDLUNG LIKELY COMBINATION OF TREATED DISE ASE AND POSTTREATMENT CHANGE. AN ADJACENT SMALL LEFT PLEURAL EFFUSION IS ALSO UNCHANGED. 2. PROMINENT 1.7 CM RIGHT HILAR LYMPH NODE IS UNCHANGED. 3. RIGHT GREATER THAN LEFT ADRENAL MASSES MEASURING UP TO 4.1 CM, STABLE TO A COUPLE MILLIMETERS SMAL LER 4. SCATTERED NONENLARGED AND BORDERLINE SIZED MESENTERIC LYMPH NODES REMAIN STABLE. 5. SIGMOID DIVERTICULOSIS. THERE IS MILD WALL THICKENING ALONG THE PROXIMAL SIGMOID THAT COULD REPRES ENT WALL REDUNDANCY. DIRECT VISUALIZATION RECOMMENDED IF ROUTINE SCREENING COLONOSCOPY HAS NOT STARTE D. 6. PROSTATOMEGALY (5.9 CM WIDE) AND MILD EMPHYSEMA.
== END | disposition home or self-care (01) ==
LOC: RADCTMAIN 13:47
PROVIDERS: ATTEND Internal Medicine Hematology & Oncology
DX: C34.32 Malignant neoplasm of lower lobe, left bronchus or lung (principal); J90 Pleural effusion, not elsewhere classified; E27.8 Other specified disorders of adrenal gland; K57.30 Diverticulosis of large intestine without perforation or abscess without bleeding; N40.0 Benign prostatic hyperplasia without lower urinary tract symptoms; J43.9 Emphysema, unspecified
CPT/HCPCS: 82565; 84520; 71260; 74177; 36415; Q9967

== ENCOUNTER → 2018-06-13 | Outpatient (CLI) | payer MEDICARE, BC ==
[2018-06-13 13:12] LABS: Blood Urea Nitrogen 14 mg/dL (9-20)
--- NOTE | 2018-06-13 17:50 | CT ---
EXAMINATION TYPE: CT ChestAbdPelvis w con DATE OF EXAM: 06/13/2018 INDICATION: Follow-up lung cancer. COMPARISON: 03/28/2018 CT DLP: 787.5 mGycm CONTRAST: Performed with Oral Contrast and with IV Contrast, patient injected with 100 mL of Isovue M300. TECHNIQUE: Axial images at 5 mm thick sections. Reconstructed images in the coronal plane. Delayed images through the kidneys. FINDINGS: CT CHEST: Portion of the thyroid visualized is normal. The superior left medial hilar infiltrate appears stable from comparison. No interval growth is evide nt. Some emphysematous changes within the periphery of the left midlung may be present. Small pneumat ocele is in the posterior lateral left lower lobe. No enlarged mediastinal or hilar adenopathy is evident. The ascending aorta diameter at the level of the main pulmonary artery is 3.2 cm. The main pulmonary artery diameter at the bifurcation is 2.6 cm. Coronary artery calcification is present. CT ABDOMEN: Liver: Normal Spleen: Normal Pancreas: Normal Adrenal glands: Bilateral adrenal glands are enlarged slightly hypodense centers measuring 3.6 x 3.5 cm on the left (Previous 2.4 x 1.9) and 3.7 x 2.9 cm on the right (Previous 4.2 x 2.9). This is sligh tly smaller on the right compared to 03/28/2018 but has enlarged on the left, previously measuring 1. 9 x 2.4 cm. Gallbladder: Normal Kidneys: No masses are evident. No hydronephrosis is present. No cysts are present. Delayed images were obtained through the kidneys, which remain unremarkable. Aorta: Vascular calcification is within the aorta. Inferior vena cava: Normal. CT PELVIS: There is a left inguinal hernia containing mesenteric fat. Loops of bowel within the abdomen and pelvis are normal. There are loops of bowel which are incom pletely distended or lack oral contrast limiting their evaluation. There is thickening through the pr oximal sigmoid colon. Scattered diverticuli are present. Mild diverticulitis is not excluded. No obst ruction is evident. Appendix: Normal as visualized. Urinary bladder: Mild diffuse wall thickening may be present. Genitourinary structures: Prostate is prominent and has impression on the inferior aspect of the urin chris bladder. Osseous structures: No suspicious lytic areas are evident. There may be some mild sclerosis within po sterior ribs. Facet hypertrophy is present within the lower lumbar spine. IMPRESSIONS: 1. No suspicious changes of the lung markings in the left suprahilar region. 2. Enlargement of the left adrenal gland and continued abnormal appearance of the right adrenal gland suspicious for metastatic lesions. 3. Diffuse thickening of the proximal sigmoid colon with adjacent diverticuli. A mild diverticulitis may be present. 4. Urinary bladder wall thickening diffusely is not entirely excluded. Consider cystitis.
== END | disposition home or self-care (01) ==
LOC: RADCTMAIN 12:27
PROVIDERS: ATTEND Internal Medicine Hematology & Oncology
DX: C34.32 Malignant neoplasm of lower lobe, left bronchus or lung (principal); E27.8 Other specified disorders of adrenal gland; K63.89 Other specified diseases of intestine
CPT/HCPCS: 82565; 84520; 71260; 74177; 36415; Q9967

== ENCOUNTER → 2018-09-19 | Outpatient (CLI) | payer MEDICARE, BC ==
[2018-09-19 15:13] LABS: Blood Urea Nitrogen 19 mg/dL (9-20)
--- NOTE | 2018-09-20 04:52 | CT ---
EXAMINATION TYPE: CT ChestAbdPelvis w con DATE OF EXAM: 09/19/2018 COMPARISON: 06/13/2018 and 03/28/2018 HISTORY: 53-year-old male Follow up for lung cancer. TECHNIQUE: Contiguous axial scanning of the chest, abdomen, and pelvis performed with IV Contrast, pa tient injected with 100ml mL of Isovue 300. Delayed images through the kidneys were obtained. Coronal /sagittal reconstructions performed. CT DLP: 942.6 mGycm Automated exposure control for dose reduction was used. FINDINGS: Chest: Heart normal size without pericardial effusion. Coronary vessel calcifications are present. Aorta normal caliber with bovine configuration to the aortic arch. Stable 7 mm pretracheal lymph node. Stable 7 mm right tracheobronchial angle lymph node. A 1 cm right hilar lymph node is not enlarged. Stable mild soft tissue thickening at the left hilum with contiguous patchy and strandy density exten ding back to the subpleural region of the left mid to lower lung. No pleural effusion. Mild to modera te centrilobular emphysema. ABDOMEN: No focal liver lesion or biliary ductal dilatation. Portal venous system is patent. Gallbladder, spleen, and pancreas appear within normal limits. Both kidneys show scattered subcentimeter hypodensities too small shelia CT characterization, likel y cysts. The right adrenal gland measures 3.5 x 2.4 cm, unchanged. The left adrenal gland measures 5.2 x 4.4 cm versus 3.7 x 3.4 cm, previously. On 03/28/2018, this martha ured only 2.4 x 1.9 cm. No dilated small bowel, free fluid, or free air. Stable scattered nonenlarged and borderline sized mesenteric lymph nodes for example, axial image 84 measuring up to 7 mm. Normal appendix. Oral contrast progressed to the ascending colon. Mild to moderate stool burden. Sigm oid diverticulosis. Improved appearance to the proximal sigmoid. There is mild circumferential wall t hickening throughout the sigmoid probably due to nondistention. Pelvis: Moderate circumferential bladder wall thickening. Prostate gland measures 5.8 cm wide. Patulous left internal canal. No abnormal fluid collection in the pelvis or pelvic lymphadenopathy. Bones: Degenerative changes lumbar spine. No osseous destructive process is seen. ACDF hardware. IMPRESSION: 1. STABLE MILD SOFT TISSUE THICKENING IN THE LEFT HILAR REGION WITH PATCHY AND STRANDY OPACITY EXTEND ING FROM HERE TO THE SUBPLEURAL REGION OF THE POSTERIOR LEFT MIDLUNG. FINDINGS SUGGEST TREATED DISEAS E AND POSTTREATMENT CHANGE. 2. BILATERAL ADRENAL MASSES. ON THE RIGHT, THIS IS STABLE MEASURING 3.5 X 2.4 CM. HOWEVER, ON THE LEF T, THERE HAS BEEN PROGRESSIVE ENLARGEMENT NOW MEASURING 5.2 X 4.4 CM (VERSUS 3.7 X 2.4 CM ON 06/13/20 18 AND 2.4 X 1.9 CM ON 03/28/2018). LOCAL DISEASE PROGRESSION DIFFICULT TO EXCLUDE. 3. NO NEW METASTATIC DISEASE IS EVIDENT. 4. COPD, SIGMOID DIVERTICULOSIS, AND MODERATE CIRCUMFERENTIAL BLADDER WALL THICKENING THAT COULD REPR ESENT CHRONIC BLADDER WALL HYPERTROPHY OR CYSTITIS. CLINICALLY CORRELATE. PROSTATOMEGALY (5.8 CM WIDE ).
== END ==
LOC: RADCTMAIN 14:42
PROVIDERS: ATTEND Internal Medicine Hematology & Oncology
DX: J98.4 Other disorders of lung (principal); E27.9 Disorder of adrenal gland, unspecified; J44.9 Chronic obstructive pulmonary disease, unspecified; K57.30 Diverticulosis of large intestine without perforation or abscess without bleeding; N40.0 Benign prostatic hyperplasia without lower urinary tract symptoms
CPT/HCPCS: 82565; 84520; 71260; 74177; 36415; Q9967

== ENCOUNTER → 2018-12-09 | Outpatient (CLI) | payer MEDICARE, BC ==
[2018-12-09 14:06] LABS: Blood Urea Nitrogen 15 mg/dL (9-20)
--- NOTE | 2018-12-09 15:38 | CT ---
EXAMINATION TYPE: CT ChestAbdPelvis w con DATE OF EXAM: 12/09/2018 COMPARISON: CT chest abdomen and pelvis September 19, 2018 and older CTs. PET/CT April 04, 2016 HISTORY: Lung cancer, observe for mets. CT DLP: 790.1 mGycm. Automated Exposure Control for Dose Reduction was Utilized. CONTRAST: CT scan of the thorax, abdomen and pelvis is performed with IV Contrast, patient injected with 100 mL of Isovue 300. FINDINGS: LUNGS: Mild underlying emphysematous changes redemonstrated. There is persistent left hilar scarring extending posteriorly axial image 28 not significantly changed from prior study image 32 with infrahi lar extension and mild central bronchiectasis axial image 31 all redemonstrated as there is additiona l posterior medial extension. No new nodules or masses. No pleural effusion or pneumothorax is noted bilaterally. MEDIASTINUM: Stable prominent but subcentimeter mediastinal lymph nodes but new lymph node anterior m ediastinum anterior to the ascending aorta and main pulmonary artery measuring 1.1 x 1.0 cm is strong ly suspicious for active neoplastic recurrence No pericardial effusion is seen. OTHER: No additional significant abnormality is seen. LIVER/GB: No significant abnormality is appreciated. PANCREAS: No significant abnormality is seen. SPLEEN: No significant abnormality is seen. ADRENALS: Left adrenal metastatic lesion measures 4.7 x 3.9 cm current study axial image 57 slightly diminished in size from prior. Right adrenal metastatic lesion measures 3.1 x 1.8 cm current study ax ial image 55 not significantly changed from prior.. KIDNEYS: No significant abnormality is seen. BOWEL: The oral contrast reaches level of sigmoid colon. There is no suspicious small or large bowel dilatation. Some scattered diverticula in the left and sigmoid colon are present with mild wall thick ening. Finding favor product of poor distention. A mild colitis should be excluded clinically. GENITAL ORGANS: Heterogeneous enlarged prostate gland bulging on bladder base consistent with BPH is redemonstrated. There is bladder wall thickening presumed related to outlet obstruction from enlarged prostate gland again seen. LYMPH NODES: No greater than 1cm abdominal or pelvic lymph nodes are appreciated. OSSEOUS STRUCTURES: Moderate multilevel spurring in the thoracolumbar spine is again seen. OTHER: There is persistent small to moderate-sized fat-containing left inguinal hernia. Mild calcifie d plaque of aorta extends into branch vessels most prominent right common iliac artery level similar to prior. IMPRESSION: Suspicious new mediastinal lymph node anteriorly axial image 26 worrisome for active neop lastic recurrence.
== END ==
LOC: RADCTMAIN 13:29
PROVIDERS: ATTEND Internal Medicine Hematology & Oncology
DX: C34.82 Malignant neoplasm of overlapping sites of left bronchus and lung (principal)
CPT/HCPCS: 82565; 84520; 71260; 74177; 36415; Q9967 ×2

== ENCOUNTER → 2019-04-17 | Outpatient (CLI) | payer MEDICARE, BC ==
[2019-04-17 14:38] LABS: African American GFR (CKD) >90 (>60 ml/min/1.73 sqM); Blood Urea Nitrogen 21 mg/dL (9-20)
--- NOTE | 2019-04-18 08:55 | CT ---
EXAMINATION TYPE: CT ChestAbdPelvis w con DATE OF EXAM: 04/17/2019 COMPARISON: CT chest abdomen and pelvis December 09, [address] older [address] PET CT April 04, 2016 HISTORY: Lung CA f/u, new lump right axillary region per patient. CT DLP: 861.1 mGycm. Automated Exposure Control for Dose Reduction was Utilized. CONTRAST: CT scan of the thorax, abdomen and pelvis is performed with oral and with IV Contrast, patient inject ed with 100 mL of Isovue 300. FINDINGS: LUNGS: Mild underlying emphysematous changes redemonstrated there is persistent scarring centered lef t hilar level with superior, anterolateral, and posterior extension. Mild central bronchiectatic raymundo ges stable. There is additional dependent atelectatic change in the right lower lobe. No new nodules or masses. No pleural effusion or pneumothorax. MEDIASTINUM: There is marked enlargement of prior suspicious 1.1 cm anterior mediastinal lymph node a nterior to ascending aorta which currently measures 4.3 x 2.6 cm current study image 23 and now abuts the anterior aspect of the main pulmonary artery. Stable subcentimeter fullness left hilar region. N o new greater than 1 cm adenopathy. No cardiomegaly or pericardial effusion is seen. OTHER: Corresponding to patient's clinical concern there is new heterogeneous mass worrisome for meta static lesion measuring 3.2 x 2.8 cm in the right midthoracic chest wall laterally axial image 25. LIVER/GB: No significant abnormality is appreciated. PANCREAS: No significant abnormality is seen. SPLEEN: No significant abnormality is seen. ADRENALS: Stable left adrenal heterogeneous hypodense mass measuring 4.6 x 3.8 cm current study image 53. Stable slightly smaller heterogeneous/partially calcified right adrenal mass measuring 2.6 x 1. 8 cm axial image 51. KIDNEYS: No significant abnormality is seen. BOWEL: Oral contrast reaches level of terminal ileum. There is no suspicious small or large bowel dil atation. GENITAL ORGANS: Stable heterogeneous slightly enlarged prostate gland axial image 115. LYMPH NODES: There is new intraperitoneal midline midabdominal lesion measuring 3.3 x 3.3 cm axial im age 70. There is new left posterior retroperitoneal 2.0 x 1.6 cm lesion axial image 73. OSSEOUS STRUCTURES: No significant abnormality is seen. OTHER: Stable small fat-containing left inguinal hernia. IMPRESSION: There is confirmation of active neoplastic progression with enlarging thoracic lymph node and new right chest wall and intra-abdominal metastatic disease felt present. If tissue confirmatio n is necessary right chest wall lesion can be safely sampled under CT guidance for tissue correlation
== END | disposition home or self-care (01) ==
LOC: RADCTMAIN 13:38
PROVIDERS: ATTEND Internal Medicine Hematology & Oncology
DX: C79.89 Secondary malignant neoplasm of other specified sites (principal); C34.32 Malignant neoplasm of lower lobe, left bronchus or lung
CPT/HCPCS: 82565; 84520; 71260; 74177; 36415; Q9967